=== PATIENT | female | born 1950 | race Caucasian/White ===

== ENCOUNTER 2020-06-24 10:58 | Inpatient (IN) | payer MEDICARE, BC ==
[~2020-06-24] VITALS: Ht 172.7 cm; Wt 65.8 kg
[~2020-06-24 10:58] MED LIST: BABY ASPIRIN81 M1 PO; CHEWABLE CALCI1 EACH PO; FISH OIL ORAL; LISINOPRIL5 MG ORAL; NASONEX17 GM NS; POTASSIUM MAGNESIUM ORAL; PROBIOTIC1 EAC1 PO; SERTRALINE HCL100 MG PO; SERTRALINE HCL50 MG PO; VIT B12 ORAL; VIT D ORAL; ZYRTEC10 M3 PO; ZYRTEC10 MG PO
--- NOTE | 2020-06-24 12:21 | Pre-Procedure Note/Attestation ---
Pre-Procedure Note/Attestation Complete Prior to Procedure Planned Procedure: not applicable Procedure Narrative: Kock Pouch Endoscopy Indications for Procedure Pre-Operative Diagnosis: Malfunctioning Kock Pouch with inability to intubate Attestation I attest that I discussed the nature of the procedure; its benefits; risks and complications; and alternatives (and the risks and benefits of such alternatives), prior to the procedure, with the patient (or the patient's legal associate financial representative). I attest that, if there was a reasonable possibility of needing a blood transfusion, the patient (or the patient's legal associate financial representative) was given the [facility] standardized written summary, pursuant to the [place] Blood Safety Act ([place] Health and Safety Code # 1645, as amended). I attest that I re-evaluated the patient just prior to the surgery and that there has been no change in the patient's H&P, except as documented below: none Dandy Mar MD Jun 24, 2020 12:21
[2020-06-24 12:22] VITALS: BP 127/72
--- NOTE | 2020-06-24 12:30 | Pre-op HX & Phy Repo 2 SIG ---
PRE-ENDOSCOPY HISTORY AND PHYSICAL REASON FOR EVALUATION: Scheduled for urgent Kock pouch endoscopy on June 24, 2020. HISTORY OF PRESENT ILLNESS: The patient is a 69-year-old female in overall good health, who has a past history of ulcerative colitis and many years ago underwent proctocolectomy with Kock pouch continent ileostomy with last revision in 2012. She has been doing well intubating 5 times per day. Recently, she felt she might have some symptoms of pouchitis, but then on nightJune 18 at 11 p.m., she intubated, but she was unable to intubate the following day. I directed her that evening on June 19, to the emergency room and she was in [place]. vice president payer was able to get a 30-Swedish Medena catheter into the pouch and connected it to suction. A nasogastric tube was placed and she was hospitalized for several days, now at home and stable. She has an indwelling catheter in place. Her difficulty has only been for the last few weeks and she has been able to put the catheter almost all the way in before it could not go in any further. In the past she had severe pouchitis causing abdominal and right lower extremity pain, with extensive negative vascular work-up. 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 After several months of instilling mesalamine suspension qhs into her pouch all of her symptoms resolved. PAST MEDICAL HISTORY: MEDICATIONS: Lisinopril 10 mg daily, sertraline 150 mg daily, Nasacort one spray each nostril once daily, Zyrtec 10 mg per day as needed, iron, probiotics, fish oil, and other supplements. ALLERGIES TO MEDICATIONS: Sulfa. She does not tolerate oral Flagyl, but she is not allergic to Flagyl. REVIEW OF SYSTEMS: The patient has past history of hyperthyroidism, stabilized in 2009. OPERATIONS: In addition to her ulcerative colitis and Kock pouch surgery, she underwent mitral valve robotic repair in 2008 and [place]-BSO in 2000. PHYSICAL EXAMINATION: The patient is arriving from out of town. She will be examined upon arrival and dictated separately. IMPRESSION: 1. Malfunctioning Kock pouch with inability to intubate to evacuate stool. 2. Hypertension. 3. Allergies, intermittent 4. Past history of hyperthyroidism. 5. History of ulcerative colitis. 6. STATUS POST MULTIPLE ABDOMINAL OPERATIONS: 6.1. Proctocolectomy and Marion ileostomy in 1975. 6.2. Kock pouch continent ileostomy in 1979. 6.3. Revision of Kock pouch valve in 1979. 6.4. Total abdominal hysterectomy and bilateral salpingo-oophorectomy 2000 6.5. Revision of Kock pouch with creation of new valve and stoma with relocation of the stoma to the left lower quadrant on September 19, 2012. PLAN: The patient will undergo pouch endoscopy, not requiring anesthesia or sedation. Based on the findings the decision will be made whether surgical revision is required and the best way to proceed. She may need to be admitted after the endoscopy and surgery scheduled on urgent basis. Dandy Mar M.D. DR: Siri JOB#: [id number] CC: REYNA
[2020-06-24 13:09] LABS: BASOPHILS % (AUTO) 1.1 % (0.0-2.0); EOSINOPHILS % (AUTO) 2.8 % (0.0-3.0); HEMOGLOBIN 13.4 G/DL (12.0-16.0); LYMPHOCYTES % (AUTO) 14.9 % (20.0-45.0); MEAN CORPUSCULAR VOLUME 88 FL (80-99); NEUTROPHILS % (AUTO) 75.2 % (45.0-75.0); PLATELET COUNT 235 K/UL (150-450); RED BLOOD COUNT 4.68 M/UL (4.20-5.40); RED CELL DISTRIBUTION WIDTH 14.2 % (11.6-14.8); WHITE BLOOD COUNT 6.1 K/UL (4.8-10.8)
[2020-06-24 13:29] LABS: ANION GAP 11 mmol/L (5-15); BLOOD UREA NITROGEN 17 mg/dL (7-18); CALCIUM 8.6 MG/DL (8.5-10.1); CARBON DIOXIDE 21 MMOL/L (21-32); CHLORIDE 103 MMOL/L (98-107); CREATININE 0.7 MG/DL (0.55-1.30); POTASSIUM 3.3 MMOL/L (3.5-5.1); SODIUM 135 MMOL/L (136-145)
[2020-06-24 13:34] LABS: ALANINE AMINOTRANSFERASE 31 U/L (12-78); ALBUMIN 3.3 G/DL (3.4-5.0); ALBUMIN/GLOBULIN RATIO 0.8 (1.0-2.7); ALKALINE PHOSPHATASE 45 U/L (46-116); ASPARTATE AMINO TRANSFERASE 21 U/L (15-37); BILIRUBIN,TOTAL 0.5 MG/DL (0.2-1.0)
--- NOTE | 2020-06-24 13:51 | Brief Operative Note ---
Immediate Post Operative Note Operative Note Pre-op Diagnosis: Malfunctioning Kock Pouch with inability to intubate Procedure: Kock pouch endoscopy Post-op Diagnosis: Angulation of access segment at 8cm depth Post-op Diagnosis: same as pre-op Findings: consistent w/pre-op dx studies Surgeon: taylor Anesthesia: other - none Specimen: none Complications: none Condition: stable Fluids: none Estimated Blood Loss: none Drains: other - 28 Garrett to Kock Pouch Implant(s) used?: No Dandy Mar MD Jun 24, 2020 13:51
--- NOTE | 2020-06-24 14:00 | NUR ---
NURSE NOTES: Received pt from outpatient. Pt undergone pouch endoscopy. Pt awake, alert and orientedx4, able to make needs known. Pt ambulatory with steady gait. Skin intact. Pt in RA, breathing even and unlabored. Denied any pain at this time. noted ileo connected to drainage bag to gravity. Will flush Q3 as ordered. UA stat order, will collect urine sample. Planned to have PICC placement. Obtained consent by pt. Oriented pt to room. Call light and needs within reach. Bed in low position and locked. Side rails up x2. Will continue to monitor.
--- NOTE | 2020-06-24 14:09 | General Progress Note ---
Progress Note Progress Note H&P dictated. Kock pouch endoscopy reveals an angulation of the access segment at about 8cm deep to the stoma orifice. The pouch and valve are normal and she does not have incontinence. 28 Fr Garrett inserted post-endoscopy and connected to continuous drainage bag. History of tumor outside the pouch from prior CT scan not currently available K 3.3 Albumin 3.3 Imp: Malfunctioning Kock pouch with inability to intubate R/O intra-abdominal tumor outside Kock pouch based on history Plan; Admit from GI lab with indwelling Kock pouch catheter to continuous drainage PICC line placement CT abd and pelvis with oral and IV contrast in AM Will need surgical revision - possibly stoma revision in depth, vs. laparotomy to correct the angulation. Will wait for CT scan prior to surgical decision Clear liquid diet, NPO after midnight Dandy Mar MD Jun 24, 2020 14:09
--- NOTE | 2020-06-24 14:45 | History and Physical Report ---
DATE OF ADMISSION: 06/24/2020 DATE OF EXAMINATION: June 24, 2020 Please see previously dictated history. The patient has now arrived from out of town to undergo emergent endoscopy of her Kock pouch continent ileostomy because of difficulty with intubation. PHYSICAL EXAMINATION: GENERAL: The patient is well developed and well nourished. VITAL SIGNS: Within normal limits. HEENT: Within normal limits. LUNGS: Clear. HEART: Regular rhythm. BREASTS: Without masses. ABDOMEN: Soft. There is a long midline scar. There is a long transverse right upper quadrant scar. There are additional lower abdominal scars on the right side from prior stoma. Kock pouch continent ileostomy stoma is low in the left lower quadrant and well-formed. There is no evidence of incisional or parastomal hernia. PELVIC: Status post hysterectomy. RECTAL: Status post proctectomy. EXTREMITIES: Without edema. NEUROLOGIC: Physiologic. IMPRESSION: 1. Malfunctioning Kock pouch with inability to intubate to evacuate stool 2. Hypertension. 3. Past history of hyperthyroidism. 4. History of ulcerative colitis. 5. STATUS POST MULTIPLE ABDOMINAL OPERATIONS: 5.1. Proctocolectomy and Marion ileostomy in 1975. 5.2. Kock pouch continent ileostomy in 1979. 5.3. Revision of Kock pouch valve 1979. 5.4. Total abdominal hysterectomy and bilateral salpingo-oophorectomy 2000. 5.5. Revision of Kock pouch with creation of new valve and stoma with relocation of the stoma to the left lower quadrant September 2012. 5.6 Revision of stoma in depth June 12, 2013 6. Robotic mitral valve repair 2008 PLAN: The patient will undergo pouch endoscopy without requiring anesthesia or sedation. Based on the findings, decisions will be made as to whether she will require surgical revision or medical treatment of her inability to intubate. Dandy Mar M.D. DR: Siri JOB#: [id number] CC: REYNA
--- NOTE | 2020-06-24 15:00 | Procedure Note ---
DATE OF PROCEDURE: 06/24/2020 ENDOSCOPY PROCEDURE REPORT ENDOSCOPIST: Dandy Mar MD. ANESTHESIA: None. SEDATION: None. PRE-ENDOSCOPY DIAGNOSES: 1. Malfunctioning Kock pouch with recent inability to intubate to evacuate stool. 2. History of ulcerative colitis. 3. Status post multiple abdominal operations including proctocolectomy and Marion ileostomy in 1975, Kock pouch in 1979 with revision in 1979, hysterectomy 2000, and revision of Kock pouch with new valve and relocation of stoma to the left lower quadrant September 2012. POST-ENDOSCOPY DIAGNOSES: 1. Malfunctioning Kock pouch with recent inability to intubate to evacuate stool. 2. History of ulcerative colitis. 3. Status post multiple abdominal operations including proctocolectomy and Marion ileostomy in 1975, Kock pouch in 1979 with revision in 1979, hysterectomy 2000, and revision of Kock pouch with new valve and relocation of stoma to the left lower quadrant September 2012. ENDOSCOPY PERFORMED: Kock pouch endoscopy. FINDINGS: Elongation redundancy and angulation of the access segment at approximately 8 cm depth. DESCRIPTION OF PROCEDURE: The patient was positioned supine in the GI lab without any anesthesia or sedation given or required. She presented with an indwelling 30-Kittitian Medena catheter to a leg bag. This was flushed to clear the pouch and then removed. Using GIF-P140, the stoma was entered. There was an angulation of the access segment at the 7 to 8 cm deep to the stomal orifice. The distance to the tip of the valve was approximately 10 cm, slightly redundant for this patient. The pouch was entered and was distensible. The mucosa was normal. There was no evidence of pouchitis. Retroflexed views revealed a circumferentially well-formed nipple valve. The patient has not been having any incontinence. Withdrawal views confirmed the above findings. After removing the endoscope, I was able to manipulate a 28-Kittitian Garrett catheter into the pouch and connected to gravity drainage bag, secured with tape with a dressing over the stoma. The patient will be admitted and will require surgical revision. She tolerated the endoscopy well. Dandy Mar M.D. DR: Siri JOB#: [id number] CC:
--- NOTE | 2020-06-24 15:16 | Pre-Procedure Note/Attestation ---
Pre-Procedure Note/Attestation Complete Prior to Procedure Planned Procedure: not applicable Procedure Narrative: Fluoro guided PICC insertion Indications for Procedure Pre-Operative Diagnosis: Needs watcher automat long goods IV access Attestation I attest that I discussed the nature of the procedure; its benefits; risks and complications; and alternatives (and the risks and benefits of such alternatives ), prior to the procedure, with the patient (or the patient's legal public utilities sales representative). I attest that, if there was a reasonable possibility of needing a blood transfusion, the patient (or the patient's legal public utilities sales representative) was given the [facility] standardized written summary, pursuant to the [place] Blood Safety Act ([place] Health and Safety Code # 1645, as amended). I attest that I re-evaluated the patient just prior to the surgery and that there has been no change in the patient's H&P, except as documented below: Km Melgoza MD Jun 24, 2020 15:16
--- NOTE | 2020-06-24 15:18 | Brief Operative Note ---
Immediate Post Operative Note Operative Note Chief Complaint: Constipation Pre-op Diagnosis: Needs detention IV access Procedure: Fluoro guided PICC placement Post-op Diagnosis: Constipation requring surgery Post-op Diagnosis: same as pre-op Findings: consistent w/pre-op dx studies Surgeon: Km Melgoza MD, MA Anesthesia: local Specimen: none Complications: none Fluids: 0 Estimated Blood Loss: minimal Implant(s) used?: Yes - 4 Fr Double Lumen PICC @ 43cm Km Melgoza MD Jun 24, 2020 15:18
[2020-06-24] MEDS ORDERED: Heparin1,000 units/500ml Premix(Conc:2 units/ml) IV PRN (15:48)
[2020-06-24] MEDS ORDERED: Lidocaine 1% Plain 30 ml INJ PRN (15:48)
--- NOTE | 2020-06-24 16:00 | NUR ---
NURSE NOTES: Pt came back from Radiology with PICC line on right upper arm. Dressing clean and dry. No redness, swelling, tenderness. Received order for ok to use PICC line. Both lumens flushed well and good blood return.
--- NOTE | 2020-06-24 16:37 | NUR ---
RADIOLOGY NOTE:. RIGHT UPPER EXTREMITY PICC LINE PLACEMENT BY DR. MARIA AT 1508 HRS. FA
[2020-06-24 16:42] LABS: APPEARANCE,URINE CLEAR; BILIRUBIN, URINE NEGATIVE (NEGATIVE); COLOR,URINE PALE YELLOW; GLUCOSE, URINE (UA) NEGATIVE (NEGATIVE); KETONES,URINE 1+ (NEGATIVE); LEUKOCYTE ESTERASE ,URINE NEGATIVE (NEGATIVE); NITRITE,URINE NEGATIVE (NEGATIVE); PH,URINE 5 (4.5-8.0); PROTEIN,URINE NEGATIVE (NEGATIVE); UROBILINOGEN,URINE NORMAL MG/DL (0.0-1.0)
--- NOTE | 2020-06-24 17:46 | Diagnostic Imaging Report ---
Indications: Needs long-term IV access Technique: Ultrasound confirms patent compressible basilic vein. Total sterile technique, including sterile probe cover and sterile gel, hat, mask,, sterile gown, large sterile drape, and preparation with 2% chlorhexidine utilized. Local anesthesia with 1% lidocaine. Under real-time ultrasound guidance, the basilic vein was punctured using 21-gauge needle, followed by passage of 0.018 guidewire under direct fluoroscopy, which was used to determine appropriate catheter length. Subsequently, the needle was exchanged for 5 Tamazight peel-away sheath. 4 Tamazight dual-lumen power PICC cut to 43 cm. It was inserted through the peel-away sheath. Peel-away sheath and guidewire removed. Catheter fixed to the skin. Both catheter ports aspirated and flushed. Patient tolerated procedure well, without immediate complication. Digital radiograph documents satisfactory catheter tip position, at the cavoatrial junction. Total fluoroscopy time 30.2 seconds Total dose area product 0.50614 mGycm2 Impression: Successful placement of right-sided dual lumen PICC under sonographic and fluoroscopic guidance, as described above.
[2020-06-24] MEDS: D5 1/2NS w/KCl 20mEq 1,000 ML IV SCH (18:14)
--- NOTE | 2020-06-24 19:45 | NUR ---
NURSE NOTES: Received report from Maryann BERGMAN. Patient is awake, alert, and oriented x4. Breathing is even and unlabored in room air. Patient denies pain at the moment. Patient is ambulatory. Ileo connected to bag by gravity. Will flush q3h per order. Dressing intact and clean. PICC line right upper arm dressing intact with no bleeding noted. IVF running as ordered. Bed low and locked. Call light within reach.
[2020-06-24 20:00] VITALS: BP 122/72
--- NOTE | 2020-06-24 20:01 | NUR ---
NURSE HAND-OFF: Important Events on Shift:[Pouch endoscopy done, PICC placement done, Resumed home meds, Ileostomy with tavera cath connected to drainage bag. Belongings checked, NPO after midnight] Patient Status: [stable] Diet: [Clear liquid] Pending Orders: [] Pending Results/Labs:[] Pending MD notification:[] Latest Vital Signs: Temperature 97.2 , Pulse 74 , B/P 127 /72 , Respiratory Rate 18 , O2 SAT 96 , Room Air, O2 Flow Rate . Vital Sign Comment: [stable] Latest Coelho Fall Score: 35 Fall Risk: Medium Risk Safety Measures: Call light Within Reach, Bed Alarm Zone 1, Side Rails Side Rails x2, Bed position Low and Locked. Fall Precautions: Report given to [PACHECO Abraahm and PACHECO Jackson].
[2020-06-24] MEDS: Dyna-Hex 2% Top Sol 2oz TOPIC SCH (20:50)
[2020-06-25] VITALS (7 sets, daily range): BP systolic 114–130; BP diastolic 69–89
[2020-06-25 05:43] LABS: BASOPHILS % (AUTO) 1.3 % (0.0-2.0); EOSINOPHILS % (AUTO) 5.2 % (0.0-3.0); HEMATOCRIT 36.5 % (37.0-47.0); HEMOGLOBIN 12.5 G/DL (12.0-16.0); MEAN CORPUSCULAR VOLUME 84 FL (80-99); MONOCYTES % (AUTO) 6.7 % (1.0-10.0); NEUTROPHILS % (AUTO) 70.9 % (45.0-75.0); PLATELET COUNT 227 K/UL (150-450); RED BLOOD COUNT 4.32 M/UL (4.20-5.40); RED CELL DISTRIBUTION WIDTH 14.6 % (11.6-14.8); WHITE BLOOD COUNT 5.6 K/UL (4.8-10.8)
--- NOTE | 2020-06-25 06:42 | NUR ---
NURSE NOTES: Urine output - 1,300 ml Ileo output - 445 ml
--- NOTE | 2020-06-25 06:43 | NUR ---
NURSE HAND-OFF: Important Events on Shift: IVF, NPO after midnight Patient Status: Stable Diet: Clear liquid, NPO after midnight Pending Orders: N/A Pending Results/Labs:N/A Pending MD notification:N/A Latest Vital Signs: Temperature 98.1 , Pulse 72 , B/P 120 /82 , Respiratory Rate 16 , O2 SAT 95 , Room Air, O2 Flow Rate . Vital Sign Comment: VS stable Latest Coelho Fall Score: 35 Fall Risk: Medium Risk Safety Measures: Call light Within Reach, Bed Alarm Zone 1, Side Rails Side Rails x2, Bed position Low and Locked. Fall Precautions: Patient Fall Education Report will be given to Radha BERGMAN. Addendum: 06/25/20 at 0733 by Dakota Erickson RN Report given to Rosalba BERGMAN.
[2020-06-25] MEDS: D5 1/2NS w/KCl 20mEq 1,000 ML IV SCH (06:59)
[2020-06-25 07:10] LABS: ALANINE AMINOTRANSFERASE 30 U/L (12-78); ALBUMIN 2.9 G/DL (3.4-5.0); ALBUMIN/GLOBULIN RATIO 0.9 (1.0-2.7); ALKALINE PHOSPHATASE 44 U/L (46-116); ANION GAP 9 mmol/L (5-15); ASPARTATE AMINO TRANSFERASE 19 U/L (15-37); BILIRUBIN,TOTAL 0.5 MG/DL (0.2-1.0); BLOOD UREA NITROGEN 9 mg/dL (7-18); CARBON DIOXIDE 23 MMOL/L (21-32); CHLORIDE 106 MMOL/L (98-107); CREATININE 0.5 MG/DL (0.55-1.30); POTASSIUM 3.4 MMOL/L (3.5-5.1); SODIUM 138 MMOL/L (136-145)
--- NOTE | 2020-06-25 08:00 | NUR ---
NURSE NOTES: SEEN BY MD. ALERT AND ORIENTED NO C/C OF PAIN @ THIS TIME.DRESSING DONE BY . NPO FOR CT THIS MORNING.WILL CONTINUE W/ PLAN OF CARE.
[2020-06-25] MEDS ORDERED: Omnipaque-300 100ml vial INJ PRN (08:15)
--- NOTE | 2020-06-25 08:28 | General Progress Note ---
Progress Note Progress Note AVSS Feels okay with Kock pouch to continuous drainage. PICC in placee Abdomen soft overnight 12 hours: urine 1300 Kock pouch ileo 445 K 3.4 (up) BUN down 9 Cr 0.5 Mg 1.7 albumin 2.9 Imp: Malnutrition on admission Mild dehydration on admission, resolved Malfunctioning Kock Pouch with history of "tumor" on pouch on prior scans Plan: CT abd+pelvis with po+IV contrast TPN Mg infusions continuous drainage of Kock pouoch Dandy Mar MD Jun 25, 2020 08:28
[2020-06-25] MEDS: Lisinopril 2.5mg tab ORAL SCH (09:10)
[2020-06-25] MEDS: Sertraline 50mg tab ORAL SCH (09:11)
[2020-06-25] MEDS: Flonase Nasal Inhaler 16gm NASAL SCH (09:11)
--- NOTE | 2020-06-25 09:22 | NUR ---
RD ASSESSMENT & RECOMMENDATIONS SEE CARE ACTIVITY FOR COMPLETE ASSESSMENT DAILY ESTIMATED NEEDS: Needs based on General, possible surgery/ 66kg 25-30 kcals/kg 8193-6976 total kcals 1-1.5 g protein/kg 66-99 g total protein 25-30 mL/kg 2755-6131 total fluid mLs NUTRITION DIAGNOSIS: Altered GI function R/T h/o UC, admitted w/ malfunctioning Kock pouch with inability to intubate to evacuate stool as evidenced by NPO, pt to start TPN. CURRENT DIET:NPO PO DIET RECOMMENDATIONS: DIET PER PARENTERAL NUTRITION RECOMMENDATIONS: D/AA Rate: 66 IL Rate: 9 Total Rate: 75 Volume: 1800 % Dextrose: 18 % AA: 5.4 Energy (kcals/kg): 1743 Protein (g/kg protein): 86 Nonprotein KCALS: 1401 GIR (mg CHO/kg/min): 3.0 % Fat KCALS: 25 NCP: N Ratio: 102:1 TPN Comment: *D18% AA 5.4% @ 66ml/hr + IL 20% @ 9ml/hr-> all 3:1, total of 75ml/hr x 24hrs *TPN @ goal provides 100% est kcal/prot needs ADDITIONAL RECOMMENDATIONS: * Monitor lytes closely w/ TPN, replete as needed (low K and mag) * Monitor LFTs and BGs w/ TPN, need for TPN adjustment * Monitor wt trend, rec standing wt for accuracy.
--- NOTE | 2020-06-25 10:30 | NUR ---
NURSE NOTES: TO RADIOLOGY FOR CT VIA WHEELCHAIR.
--- NOTE | 2020-06-25 11:51 | NUR ---
CASE MANAGEMENT:INITIAL REVIEW 69 YR OLD FEMALE FROM HOME FOR SCHEDULED PROCEDURE CC;KOCK POUCH MALFUNCTION W/INABILITY TO INTUBATE SI;POD #1 KOCK POUCH ENDOSCOPY 97.6 72 18 130/75 93% ON RA NA 135 K+ 3.3 UA+ KETONES, BLOOD, RBC, SQUAMOUS EPITH CELLS, AMORPHOUS SEDIMENT COVID RAPID ~ NEGATIVE PICC LINE INSERTION IS;HEPARIN IV ONCE IVF D5W ADMITTED TO MED SURG MED SURG STATUS DCP;FROM HOME PLAN; TPN MG INFUSIONS CONTINUOUS DRAINAGE OF KOCK POUCH
--- NOTE | 2020-06-25 13:08 | Diagnostic Imaging Report ---
CT ABDOMEN AND PELVIS WITH CONTRAST INDICATION: Abdominal mass TECHNIQUE: Continuous helical transaxial imaging of the abdomen and pelvis was obtained from the lung bases to the pubic symphysis during intravenous contrast administration. Coronal 2-D reformats were also obtained. Study obtained in a Siemens sensation [address] Automatic Exposure Control was utilized. Total Dose length Product (DLP): 280.[address] Dose Index Volume (CTDIvol): 5.6 mGy COMPARISON: None FINDINGS: Lower chest:: Mild cardiomegaly. There is bibasilar subsegmental atelectasis. Hepatobiliary:: Unremarkable. Genitourinary:: There's a nonobstructing left lower pole renal calculus measuring 1.1 cm. No hydronephrosis. Subcentimeter renal cysts. Adrenals:: Nonspecific left adrenal gland thickening. Pancreas:: Unremarkable. Gastrointestinal:: The patient is status post colectomy with Kock pouch creation, which is cannulated by a left lower quadrant approach catheter. There is high-density material and soft tissue thickening around the entry site of the catheter at the anterior aspect of the pouch, likely representing expected postoperative appearance. Blind ending rectal stump is noted. Spleen: : Unremarkable. Peritoneum:: No free air or free fluid. Bones and soft tissues:: There are multilevel discogenic degenerative changes of the visualized spine. IMPRESSION: 1. Status post Kock pouch creation, which is cannulated and does not demonstrate filling defects. 2. Nonobstructing left nephrolithiasis. The CT scanner at [facility] is accredited by the [employer] and the scans are performed using protocols designed to limit radiation exposure to as low as reasonably achievable to attain images of sufficient resolution adequate for diagnostic evaluation.
--- NOTE | 2020-06-25 14:00 | NUR ---
NURSE NOTES: Received report from PACHECO Rowe. Pt lying in bed w/bed in lowest position and call light within reach. Pt A&Ox4, VSS, and in no apparent distress. DESI PICC line intact/asymptomatic w/IVF infusing; ileo patent/draining; and dressing C/D/I. Pt still NPO after CT scan this morning; will f/u w/MD. Will continue to monitor.
--- NOTE | 2020-06-25 19:34 | NUR ---
NURSE HAND-OFF: Important Events on Shift: PT had CT A/P today; NPO at midnight in preparation for EGD tomorrow morning. Patient Status: Stable Diet: Clear liquids Pending Orders: None Pending Results/Labs: None Pending MD notification: None Latest Vital Signs: Temperature 97.4 , Pulse 76 , B/P 123 /74 , Respiratory Rate 18 , O2 SAT 95 , Room Air, O2 Flow Rate . Vital Sign Comment: Stable Latest Coelho Fall Score: 35 Fall Risk: Medium Risk Safety Measures: Call light Within Reach, Bed Alarm Zone 1, Side Rails Side Rails x2, Bed position Low and Locked. Fall Precautions: Patient Fall Education Report given to PACHECO Abraham.
--- NOTE | 2020-06-25 19:45 | NUR ---
NURSE NOTES: Received report from Bree BERGMAN. Patient is awake, alert, and oriented x4. On room air, breathing is even and unlabored. No c/o pain. RLQ ileo with catheter and drainage bag by gravity noted. Dressing changed per patient request. IV PICC line on DESI intact and patent with no bleeding noted. Bed low and locked. Call light within reach.
[2020-06-25] MEDS ORDERED: Dextrose 10% 1,000 ML IV PRN (20:00)
[2020-06-25] MEDS: Fat Emulsion Iv 20% 216 ML in Tpn 1,584 ML IV SCH (20:08)
[2020-06-25] MEDS: Dyna-Hex 2% Top Sol 2oz TOPIC SCH (20:08)
[2020-06-25] MEDS: Phytonadione 10 mg/mL 1ml amp SUBQ SCH (20:09)
[2020-06-25] MEDS ORDERED: Fat Emulsion Iv 20% 250 ML IV SCH (21:00)
[2020-06-25] MEDS ORDERED: Tpn 2,000 ML IV SCH (21:00)
[2020-06-25] MEDS: NovoLOG Insulin Flexpen SUBQ SCH (23:47)
[2020-06-26 03:55] VITALS: BP 113/77
[2020-06-26] MEDS: NovoLOG Insulin Flexpen SUBQ SCH ×3 (05:37→17:50)
[2020-06-26 06:10] LABS: BASOPHILS % (AUTO) 1.3 % (0.0-2.0); EOSINOPHILS % (AUTO) 4.9 % (0.0-3.0); HEMATOCRIT 36.7 % (37.0-47.0); MEAN CORPUSCULAR VOLUME 83 FL (80-99); MONOCYTES % (AUTO) 7.2 % (1.0-10.0); NEUTROPHILS % (AUTO) 69.6 % (45.0-75.0); PLATELET COUNT 214 K/UL (150-450); RED CELL DISTRIBUTION WIDTH 14.7 % (11.6-14.8); WHITE BLOOD COUNT 5.5 K/UL (4.8-10.8)
[2020-06-26 06:43] LABS: ALANINE AMINOTRANSFERASE 27 U/L (12-78); ALBUMIN 2.8 G/DL (3.4-5.0); ALBUMIN/GLOBULIN RATIO 0.8 (1.0-2.7); ALKALINE PHOSPHATASE 40 U/L (46-116); ANION GAP 6 mmol/L (5-15); ASPARTATE AMINO TRANSFERASE 20 U/L (15-37); BILIRUBIN,TOTAL 0.2 MG/DL (0.2-1.0); BLOOD UREA NITROGEN 9 mg/dL (7-18); CARBON DIOXIDE 24 MMOL/L (21-32); CHLORIDE 106 MMOL/L (98-107); CREATININE 0.6 MG/DL (0.55-1.30); PHOSPHORUS 2.9 MG/DL (2.5-4.9); POTASSIUM 3.8 MMOL/L (3.5-5.1); SODIUM 136 MMOL/L (136-145)
--- NOTE | 2020-06-26 06:57 | NUR ---
NURSE NOTES: Urine output - 1,375ml Ileo output - 320ml
--- NOTE | 2020-06-26 06:58 | NUR ---
NURSE HAND-OFF: Important Events on Shift: TPN, dressing change Patient Status: Stable Diet: Clear liquid and NPO after midnight Pending Orders: N/A Pending Results/Labs:N/A Pending MD notification:N/A Latest Vital Signs: Temperature 97.2 , Pulse 72 , B/P 113 /77 , Respiratory Rate 18 , O2 SAT 95 , Room Air, O2 Flow Rate . Vital Sign Comment: VS stable Latest Coelho Fall Score: 35 Fall Risk: Medium Risk Safety Measures: Call light Within Reach, Bed Alarm Zone 1, Side Rails Side Rails x2, Bed position Low and Locked. Fall Precautions: Patient Fall Education Report will be given to Radha BERGMAN.
--- NOTE | 2020-06-26 07:13 | NUR ---
NURSE NOTES: Report received from Dakota RN/Leigh RN, rounds made. Patient AOx4, calm. Respirations even/unlabored on RA. DESI PICC, bruised surrounding skin, dressing CDI. TPN infusin at 75 ml/hr. LLQ Ileostomy, dressing CDI, draining green liquid to drainage bag. Denies SOB, pain, NV. Remains NPO. Call light in reach, bed in lowest position, will continue to monitor.
[2020-06-26 08:00] VITALS: BP 130/78
--- NOTE | 2020-06-26 08:32 | General Progress Note ---
Progress Note Progress Note AVSS. Now on TPN for serum albumin now 2.8 (low albumin present on admission) Feels fine with clear liquids and Kock pouch catheter to continuous drainage. labs all stable/satisfactory except albumin 2.8 Urine 2074 Kock pouch ileo 1490 (with contrast po from CT) CT revealed no specific evidence of mass - will review with Radiologist today after Pouchogram XRay Imp: Malnutrition pre-op for revision of Kock Pouch Plan: Kock pouch pouchogram XRay with retrograde SBS today TPN Surgery pending 06/29 Dandy aMr MD Jun 26, 2020 08:32
[2020-06-26] MEDS: Sertraline 50mg tab ORAL SCH (09:46)
[2020-06-26] MEDS: Lisinopril 2.5mg tab ORAL SCH (09:46)
[2020-06-26] MEDS: Flonase Nasal Inhaler 16gm NASAL SCH (09:47)
[2020-06-26] MEDS ORDERED: Potassium Phosphate 15mm/250ml 250 ML IVPB SCH (10:00)
--- NOTE | 2020-06-26 11:39 | NUR ---
CASE MANAGEMENT:REVIEW SI;POD #2 KOCK POUCH ENDOSCOPY 98.6 77 18 130/78 95% ON RA IS;TPN IV ZESTRIL PO QD K+ PHOSPHATE MED SURG STATUS DCP;FROM HOME PLAN; Kock pouch pouchogram XRay with retrograde SBS today TPN Surgery pending 06/29
[2020-06-26 12:00] VITALS: BP 115/78
--- NOTE | 2020-06-26 12:38 | Consultation ---
Consult Note Consult Note Cardiology Consult: Chart reviewed, patient examined, EKG, Echo and labs reviewed. Imp 1. U.C with Kock pouch 2. h/o MVP- s/p repai in 2009 3. Mild MR 4. Depression 5. Abnormal EKG- w.o. evidence of LV dysfunction on Echo Plan May proceed with surgery No need for ABX Px Will discuss with Dr. Mar Note dictated # [id number] Zion Quiroga MD Jun 26, 2020 12:38
--- NOTE | 2020-06-26 12:43 | NUR ---
NURSE NOTES: Seen and evaluated by and Cleared to have procedure cardiology standpoint. Order noted and carried out.
[2020-06-26] MEDS ORDERED: Ascorbic Acid 500mg tab ORAL PRN (13:46)
--- NOTE | 2020-06-26 13:50 | NUR ---
NURSE NOTES: Patient sent down for Pouchogram XR, via WC at 1300, returned at 1350 in stable condition. Will order BCIR diet as ordered per Dr. Mar.
--- NOTE | 2020-06-26 15:15 | Consultation ---
DATE OF CONSULTATION: 06/26/2020 CARDIOLOGY CONSULTATION CONSULTING PHYSICIAN: Zion Quiroga MD. ATTENDING PHYSICIAN: Dandy Mar MD. REFERRING PHYSICIAN: Dandy Mar MD. REASON FOR CONSULTATION: Preoperative cardiac clearance. HISTORY OF PRESENT ILLNESS: The patient is a 69-year-old white female with history of ulcerative colitis, who has had multiple surgeries and currently has a Kock pouch, which will need revision. The patient has been admitted for further workup and revision of the Kock pouch. The patient has history of mitral valve prolapse and according to the patient in 2009, she underwent a robotic procedure for mitral valve repair and has been doing well since that time, but has minimal mitral regurgitation for which she is on JUAN DANIEL inhibitors. The patient has been followed at [facility] and also by her block layer in [place] and has remained stable. Her preoperative EKG showed normal sinus rhythm with poor R-wave progression in the anterior leads consistent with possible anteroseptal TX. The patient denies history of coronary artery disease, chest pain, or shortness of breath and has been active. She exercises regularly and does yoga as well as Micah without any limitations. PAST MEDICAL HISTORY: 1. Mitral valve prolapse, status post robotic repair. 2. Depression. 3. Allergic rhinitis. 4. History of ulcerative colitis, status post Kock pouch surgery currently with pouchitis. MEDICATIONS: The patient has been on lisinopril 10 mg daily, sertraline 150 mg daily, Zyrtec 10 mg daily, iron, probiotic, fish oil, and supplements. ALLERGIES: To sulfa. REVIEW OF SYSTEMS: Essentially as noted above. PHYSICAL EXAMINATION: VITAL SIGNS: Blood pressure is 110/70, temperature afebrile, heart rate is 70. GENERAL: The patient is alert and oriented, pleasant female, in no apparent distress. HEENT: Unremarkable. NECK: Supple. LUNGS: Without rales or wheezes. CARDIAC: S1, S2 are normal. There is a 1/6 systolic murmur heard on the left sternal border. Jugular venous pressure appears to be normal. ABDOMEN: Soft, nontender. Bowel sounds are present. EXTREMITIES: Without cyanosis, clubbing, or edema. DIAGNOSTIC STUDIES: EKG shows normal sinus rhythm at a rate of 74 beats per minute with possible left atrial enlargement and poor R-wave progression from V1 through V3. Echocardiogram was performed and reviewed, shows normal LV systolic function with ejection fraction of 65%. The mitral valve appears to move well. There is mitral annular calcification and aortic root calcification noted. Mild mitral regurgitation is noted. Tricuspid velocities reveal a right ventricular systolic pressure of 20 mmHg. Pulmonic regurgitation is noted. LABORATORY DATA: WBC is 5.5, hemoglobin 13.0, hematocrit 36.7, platelet count 214,000. Sodium is 136, potassium 3.8, chloride 106, creatinine is 0.6, glucose is 122. Liver function tests shows alkaline phosphatase of 40 with AST of 20 and ALT of 27, albumin is 2.8. PT and PTT are within normal limits. IMPRESSION: 1. Ulcerative colitis with Kock pouch malfunction. 2. History of mitral valve prolapse, status post robotic repair in 2009, currently stable with mild mitral regurgitation on echocardiogram. 3. Depression. 4. Allergic rhinitis. 5. Hypoalbuminemia, currently on TPN. 6. Abnormal EKG, most likely due to lead placement or axis change without evidence of LV dysfunction and without any evidence of ischemia. PLAN AND SUGGESTION: The patient is stable to proceed with surgery as planned and has no contraindications. She may continue on her current medications and has an acceptable risk for planned surgery. Dr. Mar, thank you for allowing me to participate in the care of this patient, and I will be happy to follow with you as necessary. Zion Quiroga M.D. DR: CELESTE JOB#: [id number] CC:
--- NOTE | 2020-06-26 15:31 | Diagnostic Imaging Report ---
Indication: Chest pain. Preop. Technique: Portable frontal view of the chest. Comparison: 09/18/2012 Findings: Heart is enlarged but stable in size. Again there is surgical material in the region of the mitral valve annulus. Mediastinal contours are sharp. PICC line at this tip in satisfactory position at the cavoatrial junction. There is no focal airspace consolidation. No pleural effusion, pneumothorax or radiographic evidence of pulmonary edema. Mild scoliosis and degenerative changes of the spine again seen. Acute osseous body. Impression: No radiographic evidence of acute cardiopulmonary disease.
--- NOTE | 2020-06-26 15:51 | Anethesia Preoperative Eval ---
Anesthesia Pre-op PMH/ROS General Date of Evaluation: Jun 26, 2020 Time of Evaluation: 15:21 Anesthesiologist: Melissa ASA Score: ASA 3 Mallampati Score Class I : Soft palate, uvula, fauces, pillars visible Class II: Soft palate, uvula, fauces visible Class III: Soft palate, base of uvula visible Class IV: Only hard plate visible Mallampati Classification: Class II Surgeon: Isabela Diagnosis: Abd Pain Surgical Procedure: Revision of Fox Pouch Anesthesia History: none Family History: no anesthesia problems Allergies: Coded Allergies: METRONIDAZOLE (Verified Adverse Reaction, STOMACH UPSET, 09/18/12) SULFA (SULFONAMIDE ANTIBIOTICS) (Verified Adverse Reaction, HEADACHE, 09/18/12) Medications: see eMAR Patient NPO?: Yes Past Medical History Cardiovascular: Reports: valve dz - Mitral Valve Repair Gastrointestinal/Genitourinary: Reports: other - Cirrohsis, Colitis Neurologic/Psychiatric: Reports: depression/anxiety Endocrine: Reports: hypothyroidism Hematology/Immune: Reports: anemia Musculoskeletal/Integumentary: Reports: edema PSxH Narrative: 1. Malfunctioning Kock pouch with inability to intubate to evacuate stool. 2. Hypertension. 3. Past history of hyperthyroidism. 4. History of ulcerative colitis. 5. STATUS POST MULTIPLE ABDOMINAL OPERATIONS: 5.1. Proctocolectomy and Marion ileostomy in 1975. 5.2. Kock pouch continent ileostomy in 1979. 5.3. Revision of Kock pouch valve 1979. 5.4. Total abdominal hysterectomy and bilateral salpingo-oophorectomy 2000. 5.5. Revision of Kock pouch with creation of new valve and stoma with relocation of the stoma to the left lower quadrant September 2012. 6. Robotic mitral valve repair 2008 Anesthesia Pre-op Phys. Exam Physician Exam Last Vital Signs Date Time Temp Pulse Resp B/P (MAP) Pulse Ox O2 Delivery O2 Flow Rate FiO2 06/26/20 12:00 97.6 73 16 115/78 (90) 95 06/26/20 09:00 Room Air Constitutional: NAD Neurologic: CN 2-12 intact Cardiovascular: RRR Respiratory: CTA Gastrointestinal: S/NT/ND Airway Exam Mallampati Score: Class II MO: full ROM: limited Teeth: missing, intact Anesthesia Pre-op A/P Labs Hematology Test 06/26/20 05:05 White Blood Count 5.5 K/UL (4.8-10.8) Red Blood Count 4.40 M/UL (4.20-5.40) Hemoglobin 13.0 G/DL (12.0-16.0) Hematocrit 36.7 % (37.0-47.0) L Mean Corpuscular Volume 83 FL (80-99) Mean Corpuscular Hemoglobin 29.5 PG (27.0-31.0) Mean Corpuscular Hemoglobin Concent 35.4 G/DL (32.0-36.0) Red Cell Distribution Width 14.7 % (11.6-14.8) Platelet Count 214 K/UL (150-450) Mean Platelet Volume 7.8 FL (6.5-10.1) Neutrophils (%) (Auto) 69.6 % (45.0-75.0) Lymphocytes (%) (Auto) 17.0 % (20.0-45.0) L Monocytes (%) (Auto) 7.2 % (1.0-10.0) Eosinophils (%) (Auto) 4.9 % (0.0-3.0) H Basophils (%) (Auto) 1.3 % (0.0-2.0) Chemistry Test 06/25/20 23:45 06/26/20 05:05 06/26/20 05:16 06/26/20 11:57 POC Whole Blood Glucose 132 MG/DL (74-106) H 125 MG/DL (74-106) H 120 MG/DL (74-106) H Sodium Level 136 MMOL/L (136-145) Potassium Level 3.8 MMOL/L (3.5-5.1) Chloride Level 106 MMOL/L (98-107) Carbon Dioxide Level 24 MMOL/L (21-32) Anion Gap 6 mmol/L (5-15) Blood Urea Nitrogen 9 mg/dL (7-18) Creatinine 0.6 MG/DL (0.55-1.30) Estimat Glomerular Filtration Rate > 60 mL/min (>60) Glucose Level 122 MG/DL (74-106) H Calcium Level 8.0 MG/DL (8.5-10.1) L Phosphorus Level 2.9 MG/DL (2.5-4.9) Magnesium Level 2.4 MG/DL (1.8-2.4) Total Bilirubin 0.2 MG/DL (0.2-1.0) Aspartate Amino Transf (AST/SGOT) 20 U/L (15-37) Alanine Aminotransferase (ALT/SGPT) 27 U/L (12-78) Alkaline Phosphatase 40 U/L (46-116) L Total Protein 6.5 G/DL (6.4-8.2) Albumin 2.8 G/DL (3.4-5.0) L Globulin 3.7 g/dL Albumin/Globulin Ratio 0.8 (1.0-2.7) L Risk Assessment & Plan Assessment: ASA 3 Plan: GA Status Change Before Surgery: No Pre-Antibiotics Drug: Antony Zamora MD Jun 26, 2020 15:51
[2020-06-26 16:00] VITALS: BP 112/70
--- NOTE | 2020-06-26 16:14 | Diagnostic Imaging Report ---
FLUOROSCOPIC POUCHOGRAM Indication: MALFUNCTIONING KOCK POUCH Technique: Multiple fluoroscopic cine stores and images in multiple views after direct instillation of Gastrografin contrast into total fluoroscopy time: 75.9 seconds, dose [id number] mGym2 Comparison: CT abdomen pelvis dated 06/25/2020 Findings: Initial faro dealer radiograph demonstrates postsurgical changes in the central pelvis corresponding to Kock pouch creation. Upon instillation of contrast, there is prompt filling of the Kock pouch without obvious filling defect. There is adequate distention of the pouch, with reflux into the anastomosed ileum. A total of 550 mL of Gastrografin is instilled. IMPRESSION: Pouchogram demonstrating appropriate filling of the Kock pouch and reflux into the ileum. No evidence of filling defect or stricture. Findings discussed with Dr. Mar shortly after performance of examination.
--- NOTE | 2020-06-26 19:12 | NUR ---
NURSE HAND-OFF: Important Events on Shift:Pouchogram XR done, BCIR diet started after pouchogram, Ambulated in halls x4, c/o mild right hip/thigh pain due to activity (Dr. Mar paged with detailed message) Patient Status: stable Diet: BCIR Pending Orders: LABS in AM Pending Results/Labs:CBC CMP MG PHOS 06/27 Pending MD notification: Dr. Mar paged for pain medication Latest Vital Signs: Temperature 97.3 , Pulse 72 , B/P 112 /70 , Respiratory Rate 20 , O2 SAT 94 , Room Air, O2 Flow Rate . Vital Sign Comment: none Latest Coelho Fall Score: 35 Fall Risk: Medium Risk Safety Measures: Call light Within Reach, Bed Alarm Zone 1, Side Rails Side Rails x2, Bed position Low and Locked. Fall Precautions: Patient Fall Education Report given to Bruna RN.
--- NOTE | 2020-06-26 19:30 | NUR ---
NURSE NOTES: Receive a report from PACHECO Garcia. Round is made. Awake and alert. Using bathroom with steady gaits. Ileostomy is drained with natural gravity q3hr flushing. No N/V noted. TPN is running via DESI PICC. Call light within reach. Will continue to monitor.
--- NOTE | 2020-06-26 19:45 | NUR ---
NURSE NOTES: Receive orders from Dr. Mar for pain medication. Order read back. Orders noted and carried out.
[2020-06-26 20:00] VITALS: BP 123/72
[2020-06-26] MEDS: Dyna-Hex 2% Top Sol 2oz TOPIC SCH (20:54)
[2020-06-26] MEDS: Fat Emulsion Iv 20% 216 ML in Tpn 1,584 ML IV SCH (20:56)
--- NOTE | 2020-06-26 21:00 | NUR ---
NURSE NOTES: Given prn Ibuprofen for right leg area soreness after ambulation. Noted discoloration on PICC site after insertion but denies pain at this time. No bleeding or swelling noted. Will continue to monitor.
[2020-06-27] VITALS: BP 119/69
[2020-06-27 04:30] VITALS: BP 118/71
[2020-06-27 05:44] LABS: BASOPHILS % (AUTO) 1.2 % (0.0-2.0); EOSINOPHILS % (AUTO) 6.5 % (0.0-3.0); HEMATOCRIT 35.9 % (37.0-47.0); HEMOGLOBIN 12.5 G/DL (12.0-16.0); MEAN CORPUSCULAR VOLUME 85 FL (80-99); MONOCYTES % (AUTO) 7.7 % (1.0-10.0); NEUTROPHILS % (AUTO) 68.7 % (45.0-75.0); PLATELET COUNT 201 K/UL (150-450); RED BLOOD COUNT 4.25 M/UL (4.20-5.40); RED CELL DISTRIBUTION WIDTH 14.4 % (11.6-14.8); WHITE BLOOD COUNT 5.7 K/UL (4.8-10.8)
[2020-06-27] MEDS: NovoLOG Insulin Flexpen SUBQ SCH ×4 (06:00→18:00)
--- NOTE | 2020-06-27 06:00 | NUR ---
NURSE NOTES: Soreness on leg relived. No N/V noted. TPN is running as ordered. Will continue to monitor. 12hr output Urine: 700ml Ileostomy: 620ml
[2020-06-27 06:09] LABS: ALANINE AMINOTRANSFERASE 36 U/L (12-78); ALBUMIN 2.8 G/DL (3.4-5.0); ALBUMIN/GLOBULIN RATIO 0.8 (1.0-2.7); ALKALINE PHOSPHATASE 44 U/L (46-116); ANION GAP 6 mmol/L (5-15); ASPARTATE AMINO TRANSFERASE 25 U/L (15-37); BILIRUBIN,TOTAL 0.2 MG/DL (0.2-1.0); BLOOD UREA NITROGEN 22 mg/dL (7-18); CALCIUM 8.3 MG/DL (8.5-10.1); CARBON DIOXIDE 28 MMOL/L (21-32); CHLORIDE 105 MMOL/L (98-107); CREATININE 0.7 MG/DL (0.55-1.30); PHOSPHORUS 3.8 MG/DL (2.5-4.9); POTASSIUM 3.8 MMOL/L (3.5-5.1); SODIUM 138 MMOL/L (136-145)
--- NOTE | 2020-06-27 06:50 | NUR ---
NURSE HAND-OFF: Important Events on Shift: Soreness on leg--resolved Patient Status: [stable] Diet: [BCIR low residue diet] Pending Orders: [] Pending Results/Labs:[] Pending MD notification:[] Latest Vital Signs: Temperature 97.5 , Pulse 67 , B/P 118 /71 , Respiratory Rate 16 , O2 SAT 97 , Room Air, O2 Flow Rate . Vital Sign Comment: [] Latest Coelho Fall Score: 35 Fall Risk: Medium Risk Safety Measures: Call light Within Reach, Bed Alarm Zone 1, Side Rails Side Rails x2, Bed position Low and Locked. Fall Precautions: Patient Fall Education
--- NOTE | 2020-06-27 07:30 | NUR ---
NURSE NOTES: Received report from o RN. Patient is awake and oriented, in no distress, denies pain. Ileo to gravity drainage, DESI PICC running TPN per order. On BCIR diet and tolerating well, denies N/V. Updated on plan of care. Side rails upx2, bed low and locked, call light within reach.
--- NOTE | 2020-06-27 07:30 | NUR ---
HAND-OFF: Report given to PACHECO Elizabeth. Round is made.
[2020-06-27 08:00] VITALS: BP 132/78
--- NOTE | 2020-06-27 09:48 | General Progress Note ---
Progress Note Progress Note Doing well with indwelling Kock pouch catheter to drainage Abdomen soft Tolerating TPN CBC stable BUN up 22 Mg 1.8 Albumin 2.8 Imp: malfunctioning Kock pouch Pre-admission malnutrition Plan; continue TPN prepare for surgery 06/27 stoma revision possible laparotomy bowel prep tomorrow Mg infusion f/u labs Dandy Mar MD Jun 27, 2020 09:48
[2020-06-27] MEDS: Lisinopril 2.5mg tab ORAL SCH (09:54)
[2020-06-27] MEDS: Flonase Nasal Inhaler 16gm NASAL SCH (09:54)
[2020-06-27] MEDS: Sertraline 50mg tab ORAL SCH (09:54)
[2020-06-27 11:42] VITALS: BP 126/75
[2020-06-27 16:00] VITALS: BP 120/69
[2020-06-27] MEDS ORDERED: NS Irrig 1000ml ONE (16:14)
[2020-06-27] MEDS ORDERED: Tubing IV Secondary IV ONE (16:14)
[2020-06-27] MEDS ORDERED: NS 275ml ONE (16:14)
--- NOTE | 2020-06-27 18:00 | NUR ---
NURSE NOTES: Total ileo output: +620mL Total urine output: 600mL
--- NOTE | 2020-06-27 19:30 | NUR ---
NURSE NOTES: Receive a report from PACHECO Elizabeth. Round is done. Pt is awake and alert. Denies pain. Pt is aware of planning on surgery on Monday. Ileostomy is drained in natural gravity with 3hr flushing. No N/V/bloating noted. TPN is running via DESI as ordered. Call light within reach. Will continue to monitor.
--- NOTE | 2020-06-27 19:34 | NUR ---
NURSE HAND-OFF: Important Events on Shift: Ambulated, tolerating diet well. Patient Status: stable Diet: BCIR--> clear liquid tomorrow morning Pending Orders: N/A Pending Results/Labs: N/A Pending MD notification: N/A Latest Vital Signs: Temperature 97.8 , Pulse 67 , B/P 120 /69 , Respiratory Rate 18 , O2 SAT 94 , Room Air Vital Sign Comment: VS stable Latest Coelho Fall Score: 35 Fall Risk: Medium Risk Safety Measures: Call light Within Reach, Bed Alarm Zone 1, Side Rails Side Rails x2, Bed position Low and Locked. Fall Precautions: Patient Fall Education Report given to Bruna RN.
[2020-06-27 20:00] VITALS: BP 110/61
[2020-06-27] MEDS: Dyna-Hex 2% Top Sol 2oz TOPIC SCH (20:37)
[2020-06-27] MEDS: Fat Emulsion Iv 20% 216 ML in Tpn 1,584 ML IV SCH (20:39)
[2020-06-28] VITALS: BP 119/65
[2020-06-28] MEDS: NovoLOG Insulin Flexpen SUBQ SCH ×5 (06:00→23:34)
--- NOTE | 2020-06-28 06:00 | NUR ---
NURSE NOTES: Denies pain. Slept well overnight. Will continue to monitor. 12hr output Urine: 1400ml Ileostomy: 525ml
[2020-06-28 08:00] VITALS: BP 127/78
--- NOTE | 2020-06-28 08:01 | NUR ---
NURSE NOTES: Received report from Gho RN. Patient is awake and oriented, sitting in chair, in no distress, states she feels well but has generalized aching in legs/hips, will medicate per order. Ileo to gravity drainage, patient on clear liquid diet per order and tolerating well. TPN running per order via DESI PICC, dressing intact, clean. Patient updated on plan of care. Call light within reach.
[2020-06-28] MEDS: Sertraline 50mg tab ORAL SCH (08:49)
[2020-06-28] MEDS: Lisinopril 2.5mg tab ORAL SCH (08:49)
[2020-06-28] MEDS: Flonase Nasal Inhaler 16gm NASAL SCH (08:50)
--- NOTE | 2020-06-28 09:35 | General Progress Note ---
Progress Note Progress Note Doing welll with TPN and continuous drainage of Kock pouch. Abdomen soft labs pending Plan: surgery in AM - stoma revision or depth, possible laparotomy with revision of Kock pouch and possible gastrostomy. Full discussion with patient including indications, alternatives, options and risks (bleeding, infection, inhjury to adjacent structures or organs, DVT despite prophylaxis, recurring difficulties with function or structure of Kock pouch that could require additional surgery; all questions answered. Iv antibiotics Cleocin + Unasyn, Heparin SQ pre-op Dandy Mar MD Jun 28, 2020 09:35
[2020-06-28 09:50] LABS: BASOPHILS % (AUTO) 1.5 % (0.0-2.0); EOSINOPHILS % (AUTO) 6.6 % (0.0-3.0); HEMATOCRIT 36.4 % (37.0-47.0); HEMOGLOBIN 12.3 G/DL (12.0-16.0); LYMPHOCYTES % (AUTO) 19.8 % (20.0-45.0); MEAN CORPUSCULAR VOLUME 86 FL (80-99); MONOCYTES % (AUTO) 8.6 % (1.0-10.0); NEUTROPHILS % (AUTO) 63.5 % (45.0-75.0); PLATELET COUNT 202 K/UL (150-450); RED BLOOD COUNT 4.26 M/UL (4.20-5.40); RED CELL DISTRIBUTION WIDTH 14.8 % (11.6-14.8); WHITE BLOOD COUNT 5.2 K/UL (4.8-10.8)
[2020-06-28 10:23] LABS: ALANINE AMINOTRANSFERASE 32 U/L (12-78); ALBUMIN 2.8 G/DL (3.4-5.0); ALBUMIN/GLOBULIN RATIO 0.8 (1.0-2.7); ALKALINE PHOSPHATASE 41 U/L (46-116); ANION GAP 7 mmol/L (5-15); ASPARTATE AMINO TRANSFERASE 17 U/L (15-37); BILIRUBIN,TOTAL 0.2 MG/DL (0.2-1.0); BLOOD UREA NITROGEN 23 mg/dL (7-18); CALCIUM 8.1 MG/DL (8.5-10.1); CARBON DIOXIDE 25 MMOL/L (21-32); CHLORIDE 106 MMOL/L (98-107); CREATININE 0.5 MG/DL (0.55-1.30); PHOSPHORUS 2.9 MG/DL (2.5-4.9); POTASSIUM 4.1 MMOL/L (3.5-5.1); SODIUM 137 MMOL/L (136-145)
[2020-06-28 12:00] VITALS: BP 128/76
[2020-06-28] MEDS: Neomycin Sulfate 500mg Tab ORAL SCH ×3 (12:10→20:36)
[2020-06-28 16:00] VITALS: BP 134/82
--- NOTE | 2020-06-28 18:00 | NUR ---
NURSE NOTES: Total ileo output: +1120mL Total urine output: 700mL
--- NOTE | 2020-06-28 19:11 | NUR ---
NURSE HAND-OFF: Important Events on Shift: Prepared for surgery, ambulated, tolerating diet, NPO at midnight. Patient Status: status Diet: clear liquid, NPO at midnight Pending Orders: N/A Pending Results/Labs: N/A Pending MD notification: N/A Latest Vital Signs: Temperature 97.7 , Pulse 64 , B/P 134 /82 , Respiratory Rate 16 , O2 SAT 96 , Room Air. Vital Sign Comment: VS stable Latest Coelho Fall Score: 35 Fall Risk: Medium Risk Safety Measures: Call light Within Reach, Bed Alarm Zone 1, Side Rails Side Rails x2, Bed position Low and Locked. Fall Precautions: Patient Fall Education Report given to Kanchan BERGMAN.
[2020-06-28 20:00] VITALS: BP 129/79
[2020-06-28] MEDS: Dyna-Hex 2% Top Sol 2oz TOPIC SCH (20:36)
[2020-06-28] MEDS: Fat Emulsion Iv 20% 216 ML in Tpn 1,584 ML IV SCH (20:38)
[2020-06-28] MEDS: Ampicillin/Sulbactam Sod 3 GM in NS 110 ML IV SCH (23:17)
[2020-06-28] MEDS: Clindamycin 600mg 50 ML IV SCH (23:17)
[2020-06-28 23:35] VITALS: BP 119/74
[2020-06-29] VITALS (15 sets, daily range): BP systolic 116–141; BP diastolic 71–87
[2020-06-29] MEDS: Clindamycin 600mg 50 ML IV SCH ×4 (05:13→23:15)
[2020-06-29] MEDS: Ampicillin/Sulbactam Sod 3 GM in NS 110 ML IV SCH ×4 (05:25→23:15)
[2020-06-29] MEDS: NovoLOG Insulin Flexpen SUBQ SCH ×4 (05:29→23:14)
[2020-06-29] MEDS ORDERED: Heparin 5000 units/ml inj SUBQ SCH (05:30)
--- NOTE | 2020-06-29 06:14 | NUR ---
nurse's notes: total UOP = 1350 NET ILEO (LESS WATER FLUSHES) = 940
--- NOTE | 2020-06-29 06:31 | NUR ---
NURSE HAND-OFF: Important Events on Shift: none at this point of the shift; detailed total Input and Output in paper chart; totals can be seen in echart; denies any pain or any distress; kept NPO since midnight for a scheduled stoma revision, poss lab and revision of Kock pouch under Dr. Mar; otherwise, no significant events this shift. Patient Status: stable Diet: see chart Pending Orders: see chart Pending Results/Labs:see chart Pending MD notification: none Latest Vital Signs: Temperature 97.6 , Pulse 63 , B/P 121 /77 , Respiratory Rate 18 , O2 SAT 96 , Room Air, O2 Flow Rate . Vital Sign Comment: stable; afebrile WNL Latest Coelho Fall Score: 35 Fall Risk: Medium Risk Safety Measures: Call light Within Reach, Bed Alarm Zone 1, Side Rails Side Rails x2, Bed position Low and Locked. Fall Precautions: Patient Fall Education Report will be given to Emiliana Buckley RN.
[2020-06-29] MEDS ORDERED: Rocuronium Bromide 50mg/5ml Inj IV ONE (06:53)
--- NOTE | 2020-06-29 06:59 | Immediate Post-Op Evaluation ---
Immediate Post-Op Evalulation Immediate Post-Op Evalulation Procedure: Revision of Fox Pouch Date of Evaluation: Jun 29, 2020 Time of Evaluation: 09:29 IV Fluids: 300 LR Blood Products: 0 Estimated Blood Loss: 10 Urinary Output: 0 Blood Pressure Systolic: 134 Blood Pressure Diastolic: 87 Pulse Rate: 84 Respiratory Rate: 16 O2 Sat by Pulse Oximetry: 99 Temperature (Fahrenheit): 97.1 Pain Score (1-10): 2 Nausea: No Vomiting: No Complications 0 Patient Status: awake, reacts, patent, extubated, none Hydration Status: adequate Given Within 1 Hr of Incision: Yes Antony Torres MD Jun 29, 2020 06:59
[2020-06-29] MEDS ORDERED: LORazepam Inj 2mg/ml 1ml IV PRN (07:00)
[2020-06-29] MEDS ORDERED: HYDROcodone/Acetamin 5/325 tab ORAL PRN (07:00)
[2020-06-29] MEDS ORDERED: oxyCODONE HCL/Acetaminophen 5/325mg ORAL PRN (07:00)
[2020-06-29] MEDS ORDERED: Atropine Sulfate 0.4mg/ml inj IVP PRN (07:00)
[2020-06-29] MEDS ORDERED: fentaNYL 100 mcg/2 mL IV PRN (07:00)
[2020-06-29] MEDS ORDERED: HYDROcodone/Acetamin 7.5/325 tab ORAL PRN (07:00)
[2020-06-29] MEDS ORDERED: Labetalol 5mg/ml 20ml vial IV PRN (07:00)
[2020-06-29] MEDS ORDERED: DiphenhydrAMINE 50mg/ml Inj IVP PRN (07:00)
[2020-06-29] MEDS ORDERED: Hydromorphone 0.5mg/0.5ml inj IVP PRN (07:00)
[2020-06-29] MEDS ORDERED: LR 1000ml 1,000 ML IVLG SCH (07:00)
[2020-06-29] MEDS ORDERED: Midazolam 2mg/2ml Inj IVP PRN (07:00)
[2020-06-29] MEDS ORDERED: Acetaminophen (Non formulary) 100 ML IV ONE (07:00)
[2020-06-29] MEDS ORDERED: Lidocaine 1% Plain 30 ml INJ ONE (07:01)
[2020-06-29] MEDS ORDERED: Lidocaine 1% MPF 10mg/ml 5ml ONE (07:01)
[2020-06-29] MEDS ORDERED: Sodium Chloride 10ml vial INJ ONE (07:01)
[2020-06-29] MEDS ORDERED: fentaNYL 100 mcg/2 mL IV ONE (07:02)
[2020-06-29] MEDS ORDERED: Bacitracin 50000 Units Vial ONE (07:19)
[2020-06-29] MEDS ORDERED: LR 1000ml ONE (07:30)
[2020-06-29] MEDS ORDERED: propofoL 1,000mg/100ml IV ONE (07:30)
[2020-06-29] MEDS ORDERED: Sterile Water Irrig 1000ml IRRIG ONE (07:30)
--- NOTE | 2020-06-29 07:33 | Pre-Procedure Note/Attestation ---
Pre-Procedure Note/Attestation Complete Prior to Procedure Planned Procedure: not applicable Procedure Narrative: revision of Kock pouch stoma in depth, possible laparotomy with revision of Kock pouch, possible gastrostomy Indications for Procedure Pre-Operative Diagnosis: Malfunctioning Kock Pouch with inability to intubate Attestation I attest that I discussed the nature of the procedure; its benefits; risks and complications; and alternatives (and the risks and benefits of such alternatives), prior to the procedure, with the patient (or the patient's legal route service representative). I attest that, if there was a reasonable possibility of needing a blood transfusion, the patient (or the patient's legal route service representative) was given the [place] Department [employer] standardized written summary, pursuant to the [place] Blood Safety Act ([place] Health and Safety Code # 1645, as amended). I attest that I re-evaluated the patient just prior to the surgery and that there has been no change in the patient's H&P, except as documented below:none Dandy Mar MD Jun 29, 2020 07:33
--- NOTE | 2020-06-29 07:45 | NUR ---
NURSE NOTES: Pt was already off the unit when received the report from PACHECO Hemphill.
[2020-06-29] MEDS ORDERED: NS Irrig 1000ml IRRIG ONE ×2 (07:56→08:33)
[2020-06-29] MEDS ORDERED: Neostigmine 1mg/ml 10ml Inj ONE (08:47)
[2020-06-29] MEDS ORDERED: Glycopyrrolate 0.2mg/ml 1ml Vial ONE (08:47)
--- NOTE | 2020-06-29 09:14 | 48 Hour Post Anesthesia Eval ---
Post Anesthesia Evaluation Procedure: Revision of Fox Pouch Date of Evaluation: Jun 29, 2020 Time of Evaluation: 11:43 Blood Pressure Systolic: 131 0: 78 Pulse Rate: 74 Respiratory Rate: 19 Temperature (Fahrenheit): 98 O2 Sat by Pulse Oximetry: 99 Airway: patent Nausea: No Vomiting: No Pain Intensity: 2 Hydration Status: adequate Cardiopulmonary Status: Stable Mental Status/LOC: patient returned to baseline Follow-up Care/Observations: 0 Post-Anesthesia Complications: 0 Follow-up care needed: N/A Antony Torres MD Jun 29, 2020 09:14
[2020-06-29] MEDS ORDERED: PCA Morphine 1mg/ml 30 ML IV PRN (09:15)
[2020-06-29] MEDS ORDERED: Naloxone 0.4mg/ml Inj IVP PRN (09:15)
[2020-06-29] MEDS ORDERED: Rate Change PCA 1 Each MISC PRN (09:15)
[2020-06-29] MEDS ORDERED: PCA Education Pamphlet MISC ONE (09:15)
[2020-06-29] MEDS ORDERED: LORazepam 1mg tab ORAL PRN (09:15)
--- NOTE | 2020-06-29 09:16 | Brief Operative Note ---
Immediate Post Operative Note Operative Note Pre-op Diagnosis: Malfunctioning Kock Pouch with inability to intubate Procedure: Revision of Kock Pouch stoma in depth Post-op Diagnosis: same Post-op Diagnosis: same as pre-op Findings: consistent w/pre-op dx studies Surgeon: taylor Additional Surgeons: kyler Anesthesiologist: justin Anesthesia: general Specimen: yes - Kock pouch stoma Complications: none Condition: stable Fluids: see anesthesia record Estimated Blood Loss: minimal Drains: other - 28 Fr Garrett to Kock pouch Implant(s) used?: No Dandy Mar MD Jun 29, 2020 09:16
--- NOTE | 2020-06-29 10:25 | NUR ---
NURSE NOTES: Patient arrived after revision of kock pouch. Pt is fatigued, asleep. No SOB noted. Denies any pain at this time. 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 LLQ ileostomy bag is patent. Garrett catheter is patent. SCD is on BLE. DESI PICC line is running LR at this time. Provided call light and bed in lowest position, will continue to monitor.
--- NOTE | 2020-06-29 10:30 | Operative Note - Dictated ---
DATE OF OPERATION: 06/29/2020 SURGEON: Dandy Mar MD. ADDITIONAL SURGEON: Fernando Day MD. ANESTHESIOLOGIST: Antony Torres M.D. TYPE OF ANESTHESIA: General endotracheal. PREOPERATIVE DIAGNOSES: 1. 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 2. History of ulcerative colitis. 3. STATUS POST MULTIPLE ABDOMINAL OPERATIONS: 3.1. Proctocolectomy and Marion ileostomy in 1975. 3.2. Kock pouch continent ileostomy in 1979. 3.3. Revision of Kock pouch valve 1979. 3.4. Total abdominal hysterectomy and bilateral salpingo-oophorectomy 2000. 3.5. Revision of Kock pouch with creation of new valve and stoma with relocation of the stoma to the left lower quadrant September 19, 2012. 3.6. Revision of Kock pouch stoma in depth May 2013. POSTOPERATIVE DIAGNOSES: 1. 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 2. History of ulcerative colitis. 3. STATUS POST MULTIPLE ABDOMINAL OPERATIONS: 3.1. Proctocolectomy and Marion ileostomy in 1975. 3.2. Kock pouch continent ileostomy in 1979. 3.3. Revision of Kock pouch valve 1979. 3.4. Total abdominal hysterectomy and bilateral salpingo-oophorectomy 2000. 3.5. Revision of Kock pouch with creation of new valve and stoma with relocation of the stoma to the left lower quadrant September 19, 2012. 3.6. Revision of Kock pouch stoma in depth May 2013. OPERATION PERFORMED: Revision of Kock pouch stoma in depth. DESCRIPTION OF PROCEDURE: The patient was taken to the operating room and under general anesthesia with sequential compression device stockings and Garrett catheter in place, her entire abdomen was prepped and draped in usual fashion because of the possibility that she will require laparotomy rather than just the stoma revision to correct her difficulty intubating her Kock pouch. The indwelling catheter that had been placed several days ago when she underwent endoscopy was measured when removed as 13 cm to be fully into the pouch. Now, the 28-Armenian Garrett catheter was placed through the stoma and there was difficulty manipulating it fully into the pouch approximately 5 cm deep. A transversely oriented elliptical incision was made to circumscribe the stoma and it was mobilized circumferentially below the rectus fascia were there were no further evidence of palpable scar tissue or bands. An excess of 3.5 centimeters redundant access segment had been elevated. Now with the stoma tissue oriented laterally, there was some difficulty manipulating the 28-Armenian Garrett catheter into the pouch but when the stoma was placed medially in the peristomal incision the catheter went directly into the pouch. Accordingly, the lateral aspect of the stoma was closed with interrupted 4-0 Monocryl subcuticular suture before maturing the stoma. The redundancy was excised utilizing the Digicompanion vessel sealing electrosurgical device to do the resection and control the mesentery. Now the stoma was primarily matured with continuous 2-0 chromic locking suture starting at the 3 and 9 o'clock position. A very satisfactory stoma was achieved. The 28-Armenian Garrett catheter went readily in and out of the pouch, confirmed by irrigation and was sutured to the skin with two sutures of 2-0 silk and flushed and connected to a gravity drainage bag. Final sponge and needle counts were correct. The patient tolerated the procedure well and left the operating room in good condition. Dandy Mar M.D. DR: Siri JOB#: [id number] CC: REYNA
--- NOTE | 2020-06-29 11:48 | NUR ---
RD ASSESSMENT & RECOMMENDATIONS SEE CARE ACTIVITY FOR COMPLETE ASSESSMENT DAILY ESTIMATED NEEDS: Needs based on General, Surgery/ 66kg 25-30 kcals/kg 2253-2337 total kcals 1-2 g protein/kg 66-132 g total protein 25-30 mL/kg 5450-3439 total fluid mLs NUTRITION DIAGNOSIS: Altered GI function R/T h/o UC, admitted w/ malfunctioning Kock pouch with inability to intubate to evacuate stool as evidenced by s/p revision of Kock pouch stoma, on TPN, to start CLD. CURRENT DIET:NPO PO DIET RECOMMENDATIONS: Advance diet per MD PARENTERAL NUTRITION RECOMMENDATIONS: D/AA Rate: 66 IL Rate: 9 Total Rate: 75 Volume: 1800 % Dextrose: 18 % AA: 5.4 Energy (kcals/kg): 1743 Protein (g/kg protein): 86 Nonprotein KCALS: 1401 GIR (mg CHO/kg/min): 3.0 % Fat KCALS: 25 NCP: N Ratio: 102:1 TPN Comment: *D18% AA 5.4% @ 66ml/hr + IL 20% @ 9ml/hr-> all 3:1, total of 75ml/dja10eto *TPN @ goal provides 100% est kcal/prot needs ADDITIONAL RECOMMENDATIONS: * Monitor lytes closely w/ TPN, replete as needed * Monitor LFTs and BGs w/ TPN, need for TPN adjustment * Monitor wt trend, rec standing wt as able for accuracy. * Monitor for diet advancement and tolerance
[2020-06-29] MEDS ORDERED: Ampicillin/Sulbactam Sod 3 GM in NS 110 ML IV SCH (12:00)
[2020-06-29] MEDS: Sertraline 50mg tab ORAL SCH (12:24)
[2020-06-29] MEDS: Lisinopril 2.5mg tab ORAL SCH (12:25)
[2020-06-29] MEDS: Flonase Nasal Inhaler 16gm NASAL SCH (12:30)
--- NOTE | 2020-06-29 13:38 | NUR ---
CASE MANAGEMENT:REVIEW SI;S/P KOCK POUCH STOMA REVISION IN DEPTH 96.7 68 18 132/80 94% 2L NC BG 118 IS;IVF D5 AT 50 ML/HR MORPHINE SULFATE MESSAGE BROKER DEVELOPER CLINDAMYCIN IV Q6 AMPICILLIN/SULBACTAM IV Q6 TPN IV MED SURG STATUS DCP;FROM HOME
[2020-06-29] MEDS ORDERED: D5 1/4NS w/KCl 20mEq 1,000 ML IV SCH (14:00)
--- NOTE | 2020-06-29 16:10 | NUR ---
NURSE NOTES: Patient ambulated hallway x 2 with RN assistance without any discomfort.
--- NOTE | 2020-06-29 16:53 | NUR ---
NURSE NOTES: Pt c/o sore throat and called Dr. Mar. Dr. Mar ordered cepacol q2hrs prn for sore throat. Noted and carried out.
[2020-06-29] MEDS ORDERED: PRINIVIL10 MG ORAL (17:58)
[2020-06-29] MEDS ORDERED: NASACORT10.8 ML NS (17:58)
[2020-06-29] MEDS ORDERED: VITAMIN D350 MCG PO (17:58)
[2020-06-29] MEDS ORDERED: IRON236 MG PO (17:59)
[2020-06-29] MEDS ORDERED: B COMPLEX1 EACH ORAL (17:59)
[2020-06-29] MEDS ORDERED: Tubing IV Secondary IV ONE (18:39)
[2020-06-29] MEDS ORDERED: NS Irrig 1000ml ONE (18:39)
--- NOTE | 2020-06-29 18:54 | NUR ---
NURSE HAND-OFF: Important Events on Shift:Revision of kock pouch Patient Status: stable Diet: clear liquid Pending Orders: n/a Pending Results/Labs:n/a Pending MD notification:n/a Latest Vital Signs: Temperature 97.5 , Pulse 68 , B/P 116 /74 , Respiratory Rate 16 , O2 SAT 99 , Nasal Cannula, O2 Flow Rate 2.0 . Vital Sign Comment: stable Latest Coelho Fall Score: 35 Fall Risk: Medium Risk Safety Measures: Call light Within Reach, Bed Alarm Zone 1, Side Rails Side Rails x2, Bed position Low and Locked. Fall Precautions: Patient Fall Education Report given to PACHECO Abraham.
[2020-06-29] MEDS: PCA shift volume MISC SCH (19:00)
--- NOTE | 2020-06-29 19:20 | NUR ---
NURSE NOTES: Received report from PACHECO Buckley. Pt is A&Ox4, VSS, bed locked and in lowest position, side rails up x2, call light within reach. IVF infusing well. Will continue to monitor.
[2020-06-29] MEDS: Dyna-Hex 2% Top Sol 2oz TOPIC SCH (20:27)
[2020-06-29] MEDS: Fat Emulsion Iv 20% 216 ML in Tpn 1,584 ML IV SCH (20:27)
--- NOTE | 2020-06-29 21:45 | NUR ---
NURSE NOTES: Ambulating with assist in hallway. In no acute distress, steady gait.
[2020-06-30] VITALS (8 sets, daily range): BP systolic 112–133; BP diastolic 56–72
[2020-06-30] MEDS: NovoLOG Insulin Flexpen SUBQ SCH ×3 (06:00→17:47)
[2020-06-30] MEDS: Ampicillin/Sulbactam Sod 3 GM in NS 110 ML IV SCH ×3 (06:08→17:47)
[2020-06-30] MEDS: Clindamycin 600mg 50 ML IV SCH ×3 (06:09→17:47)
[2020-06-30 06:29] LABS: BASOPHILS % (AUTO) 0.2 % (0.0-2.0); HEMOGLOBIN 11.1 G/DL (12.0-16.0); LYMPHOCYTES % (AUTO) 9.4 % (20.0-45.0); MEAN CORPUSCULAR VOLUME 85 FL (80-99); MONOCYTES % (AUTO) 6.2 % (1.0-10.0); NEUTROPHILS % (AUTO) 84.1 % (45.0-75.0); PLATELET COUNT 176 K/UL (150-450); RED BLOOD COUNT 3.77 M/UL (4.20-5.40); RED CELL DISTRIBUTION WIDTH 14.4 % (11.6-14.8); WHITE BLOOD COUNT 8.5 K/UL (4.8-10.8)
[2020-06-30 06:44] LABS: ALANINE AMINOTRANSFERASE 44 U/L (12-78); ALBUMIN 2.5 G/DL (3.4-5.0); ALBUMIN/GLOBULIN RATIO 0.8 (1.0-2.7); ALKALINE PHOSPHATASE 38 U/L (46-116); ANION GAP 8 mmol/L (5-15); ASPARTATE AMINO TRANSFERASE 33 U/L (15-37); BILIRUBIN,TOTAL 0.2 MG/DL (0.2-1.0); BLOOD UREA NITROGEN 13 mg/dL (7-18); CALCIUM 7.9 MG/DL (8.5-10.1); CARBON DIOXIDE 26 MMOL/L (21-32); CHLORIDE 106 MMOL/L (98-107); CREATININE 0.5 MG/DL (0.55-1.30); PHOSPHORUS 2.7 MG/DL (2.5-4.9); POTASSIUM 3.5 MMOL/L (3.5-5.1); SODIUM 140 MMOL/L (136-145)
--- NOTE | 2020-06-30 07:04 | NUR ---
NURSE HAND-OFF: Important Events on Shift: pain management via BUCKLE STRAP DRUM OPERATOR and sore throat Patient Status: calm and stable Diet: clear liquid Pending Orders: Pending Results/Labs: Pending MD notification: Latest Vital Signs: Temperature 97.9 , Pulse 58 , B/P 126 /68 , Respiratory Rate 18 , O2 SAT 97 , Room Air, O2 Flow Rate 2.0 . Vital Sign Comment: VSS Latest Coelho Fall Score: 35 Fall Risk: Medium Risk Safety Measures: Call light Within Reach, Bed Alarm Zone 1, Side Rails Side Rails x2, Bed position Low and Locked. Fall Precautions: Patient Fall Education Report given to PACHECO Giron.
[2020-06-30] MEDS: PCA shift volume MISC SCH ×2 (07:19→19:26)
--- NOTE | 2020-06-30 07:30 | NUR ---
NURSE NOTES: Pt lying in bed w/bed in lowest position and call light/CLIENT ENGAGEMENT MANAGER button within reach. Pt A&Ox4, VSS, and in no apparent distress. DESI PICC line intact/asymptomatic w/IVF infusing; ileo and F/C patent/draining well; and surgical dressing C/D/I. Pt has no complaints or concerns at this time. Will continue to monitor.
[2020-06-30] MEDS ORDERED: Naloxone 0.4mg/ml Inj IVP PRN (08:53)
--- NOTE | 2020-06-30 08:59 | General Progress Note ---
Progress Note Progress Note AVSS comfortable with demand dosing Morphine BUSINESS MANAGEMENT ANALYST. Ambulated. tolerated small amount clean liquids Abdomen soft, stoma pink with mild peristomal swelling WBC 8500 Hgb down 11.1 BUN down 13 Cr 0.5 Phos 2.7 Mg 1.9 albumin 2.5 Urine 2950 Kock pouch ileo 145 enteric fluid overnight Imp: Stable Plan: remove urinary Garrett catheter now Maintain indwelling Kock pouch catheter to continuous drainage Mg and Phos infusions f/u labs with iron panel, B12 and folic acid continue BUSINESS MANAGEMENT ANALYST Dandy Mar MD Jun 30, 2020 08:59
[2020-06-30] MEDS ORDERED: Rate Change PCA 1 Each MISC PRN (09:00)
[2020-06-30] MEDS ORDERED: PCA Morphine 1mg/ml 30 ML IV PRN (09:00)
[2020-06-30] MEDS ORDERED: LORazepam 1mg tab ORAL PRN (09:15)
[2020-06-30] MEDS: Sertraline 50mg tab ORAL SCH (09:34)
[2020-06-30] MEDS: Lisinopril 2.5mg tab ORAL SCH (09:34)
[2020-06-30] MEDS: Flonase Nasal Inhaler 16gm NASAL SCH (09:38)
[2020-06-30] MEDS ORDERED: Potassium Phosphate 15mm/250ml 250 ML IVPB ONE ×2 (10:00→16:00)
--- NOTE | 2020-06-30 19:30 | NUR ---
NURSE NOTES: Receive a report from PACHECO Giron.
--- NOTE | 2020-06-30 19:30 | NUR ---
NURSE HAND-OFF: Important Events on Shift: Pt ambulate around unit twice today; F/C D/C'd and pt voiding well; tolerating BCIR diet well. Patient Status: Stable Diet: BCIR, low residue Pending Orders: None Pending Results/Labs: None Pending MD notification: None Latest Vital Signs: Temperature 98.3 , Pulse 66 , B/P 112 /56 , Respiratory Rate 18 , O2 SAT 93 , Room Air Vital Sign Comment: Stable Latest Coelho Fall Score: 35 Fall Risk: Medium Risk Safety Measures: Call light Within Reach, Bed Alarm Zone 1, Side Rails Side Rails x2, Bed position Low and Locked. Fall Precautions: Patient Fall Education Report given to PACHECO Mcfarland.
--- NOTE | 2020-06-30 19:40 | NUR ---
NURSE NOTES: Pt is awake and alert. No acute distress noted. Ambulating in the unit with steady gaits. Denies pain. Ileostomy drained with gravity. No N/V/ bloating noted. TPN is running via PICC on DESI. Will continue to monitor.
[2020-06-30] MEDS: Dyna-Hex 2% Top Sol 2oz TOPIC SCH (20:28)
[2020-06-30] MEDS: Fat Emulsion Iv 20% 216 ML in Tpn 1,584 ML IV SCH (20:29)
--- NOTE | 2020-06-30 21:00 | NUR ---
NURSE NOTES: Afebrile. Ileostomy drained well after flushing. Denies pain. On CLOUD CONSULTANT-Morphine for pain but did not use for last 4 hrs. Dressing kept dry and clean. Call light within reach. Will continue to monitor.
[2020-06-30] MEDS ORDERED: NS Irrig 1000ml ONE (22:49)
[2020-06-30] MEDS ORDERED: Tubing IV Secondary IV ONE (22:53)
[2020-06-30] MEDS ORDERED: NS 500ML ONE (22:53)
[2020-07-01] VITALS: BP 134/74
--- NOTE | 2020-07-01 | NUR ---
NURSE NOTES: Given prn sleeping pill for sleep. Will continue to monitor.
[2020-07-01] MEDS: Ampicillin/Sulbactam Sod 3 GM in NS 110 ML IV SCH ×5 (00:08→23:27)
[2020-07-01] MEDS: Clindamycin 600mg 50 ML IV SCH ×3 (00:08→11:52)
[2020-07-01 05:30] VITALS: BP 143/82
[2020-07-01] MEDS: NovoLOG Insulin Flexpen SUBQ SCH ×5 (05:51→23:36)
--- NOTE | 2020-07-01 06:00 | NUR ---
NURSE NOTES: No acute distress noted. Denies pain but noted stuffy nose and mild cough. Encourage I/S and oral hydration. Will continue to monitor. Addendum: 07/01/20 at 0657 by Bruna Nolasco RN 12hr output: Urine:1600ml Ileostomy: 495ml Addendum: 07/01/20 at 0703 by Bruna Nolasco RN Noted wet on dressing. Done change dressing.
[2020-07-01 06:13] LABS: BASOPHILS % (AUTO) 1.3 % (0.0-2.0); EOSINOPHILS % (AUTO) 3.6 % (0.0-3.0); HEMATOCRIT 34.8 % (37.0-47.0); HEMOGLOBIN 11.4 G/DL (12.0-16.0); LYMPHOCYTES % (AUTO) 15.2 % (20.0-45.0); MEAN CORPUSCULAR VOLUME 88 FL (80-99); MONOCYTES % (AUTO) 8.9 % (1.0-10.0); NEUTROPHILS % (AUTO) 71.1 % (45.0-75.0); PLATELET COUNT 181 K/UL (150-450); RED BLOOD COUNT 3.94 M/UL (4.20-5.40); RED CELL DISTRIBUTION WIDTH 14.5 % (11.6-14.8); WHITE BLOOD COUNT 7.7 K/UL (4.8-10.8)
[2020-07-01 06:45] LABS: ALANINE AMINOTRANSFERASE 92 U/L (12-78); ALBUMIN 2.7 G/DL (3.4-5.0); ALBUMIN/GLOBULIN RATIO 0.8 (1.0-2.7); ALKALINE PHOSPHATASE 45 U/L (46-116); ANION GAP 4 mmol/L (5-15); ASPARTATE AMINO TRANSFERASE 54 U/L (15-37); BILIRUBIN,TOTAL 0.2 MG/DL (0.2-1.0); BLOOD UREA NITROGEN 19 mg/dL (7-18); CALCIUM 7.7 MG/DL (8.5-10.1); CARBON DIOXIDE 31 MMOL/L (21-32); CHLORIDE 107 MMOL/L (98-107); CREATININE 0.7 MG/DL (0.55-1.30); POTASSIUM 3.5 MMOL/L (3.5-5.1); SODIUM 142 MMOL/L (136-145)
--- NOTE | 2020-07-01 06:57 | NUR ---
NURSE HAND-OFF: Important Events on Shift: sleeping x1, denies pain. Patient Status: [stable] Diet: [BCIR low residue diet] Pending Orders: [] Pending Results/Labs:[] Pending MD notification:[] Latest Vital Signs: Temperature 98.1 , Pulse 71 , B/P 143 /82 , Respiratory Rate 18 , O2 SAT 93 , Room Air, O2 Flow Rate 2.0 . Vital Sign Comment: [] Latest Coelho Fall Score: 35 Fall Risk: Medium Risk Safety Measures: Call light Within Reach, Bed Alarm Zone 1, Side Rails Side Rails x2, Bed position Low and Locked. Fall Precautions: Patient Fall Education
[2020-07-01] MEDS: PCA shift volume MISC SCH (07:00)
[2020-07-01 07:13] LABS: % IRON SATURATION 10 % (15-50); IRON 32 ug/dL (50-175); TOTAL IRON BINDING CAPACITY 311 ug/dL (250-450)
--- NOTE | 2020-07-01 07:30 | NUR ---
HAND-OFF: Report given to PACHECO Elizabeth. Round is made.
--- NOTE | 2020-07-01 07:30 | NUR ---
NURSE NOTES: Received report from Beckio RN. Patient is awake and oriented, in no distress, not reporting any pain. On BCIR diet and tolerating well. [address]ROL settings checked and verified against order. TPN running per order via DESI PICC. Ileo to gravity drainage. Patient updated on plan of care. Side rails upx2, bed low and locked, call light within reach.
[2020-07-01 08:00] VITALS: BP 143/79
--- NOTE | 2020-07-01 08:20 | General Progress Note ---
Progress Note Progress Note AVSS Pain is improved and tolerating BCIR diet. Voiding okay Abdomen soft, stoma pink, peristomal incision healing nicely Urine 2650 Kock pouch ileo 1165 Hgb up 11.4 chem okay B12 and folic acid okay Iron 32 Imp: Improving severe iron deficiency Plan: D/C GENERAL LABOR FORKLIFT OPERATOR continue TPN and indwelling Kock pouch catheter to drainage continue IV antibiotics Venofer 200mg IV qhs Dandy Mar MD Jul 01, 2020 08:20
[2020-07-01] MEDS: Flonase Nasal Inhaler 16gm NASAL SCH (09:14)
[2020-07-01] MEDS: Lisinopril 2.5mg tab ORAL SCH (09:14)
[2020-07-01] MEDS: Sertraline 50mg tab ORAL SCH (09:14)
[2020-07-01 12:00] VITALS: BP 138/94
--- NOTE | 2020-07-01 13:55 | NUR ---
CASE MANAGEMENT:REVIEW SI;POD #2 KOCK POUCH STOMA REVISION 99.9 83 18 143/82 93% ON RA CA 7.7 IRON 32 AST 54 ALT 92 DINESH 2.7 IS;VENOFER IV CLINDAMYCIN IV Q6 AMPICILLIN/SULBACTAM IV Q6 TPN IV ZESTRIL PO QD MED SURG STATUS DCP;FROM HOME PLAN; D/C CUSTOMER RELATIONS CONSULTANT continue TPN and indwelling Kock pouch catheter to drainage continue IV antibiotics Venofer 200mg IV qhs
--- NOTE | 2020-07-01 15:45 | NUR ---
NURSE NOTES: Called and notified Dr. Mar that patient has voided 3150mL of urine so far during shift and has temp of 99.9. Order received, read back, and entered. Will carry out.
[2020-07-01 16:00] VITALS: BP 143/84
[2020-07-01] MEDS ORDERED: NS 275ml ONE (16:05)
[2020-07-01] MEDS ORDERED: NS Irrig 1000ml ONE (16:05)
--- NOTE | 2020-07-01 17:00 | NUR ---
NURSE NOTES: PICC line dressing changed.
[2020-07-01 17:13] LABS: APPEARANCE,URINE CLEAR; BILIRUBIN, URINE NEGATIVE (NEGATIVE); COLOR,URINE PALE YELLOW; GLUCOSE, URINE (UA) NEGATIVE (NEGATIVE); KETONES,URINE NEGATIVE (NEGATIVE); LEUKOCYTE ESTERASE ,URINE NEGATIVE (NEGATIVE); NITRITE,URINE NEGATIVE (NEGATIVE); PH,URINE 7 (4.5-8.0); PROTEIN,URINE NEGATIVE (NEGATIVE); UROBILINOGEN,URINE NORMAL MG/DL (0.0-1.0)
--- NOTE | 2020-07-01 18:00 | NUR ---
NURSE NOTES: Total ileo output: +850mL Urine output: 4050mL
--- NOTE | 2020-07-01 19:20 | NUR ---
NURSE NOTES: Receive a report from PACHECO Elizabeth.
--- NOTE | 2020-07-01 19:30 | NUR ---
NURSE NOTES: Pt is awake and alert. No distress noted. Denies pain. Pt says that she feels better after taking Ibuprofen earlier. Dressing site remain dry and intact. No N/V noted. Ileostomy drainage noted watery without thickness. TPN is running via PICC on DESI as ordered. Afebrile. Call light within reach. Will continue to monitor.
--- NOTE | 2020-07-01 19:36 | NUR ---
NURSE HAND-OFF: Important Events on Shift: Patient ambulated several times. UA sent per order. Tolerating diet well. Patient Status: stable. Diet: BCIR Pending Orders: N/A Pending Results/Labs: N/A Pending MD notification: N/A Latest Vital Signs: Temperature 98.5 , Pulse 77 , B/P 143 /84 , Respiratory Rate 18 , O2 SAT 96 , Room Air. Vital Sign Comment: VS stable Latest Coelho Fall Score: 35 Fall Risk: Medium Risk Safety Measures: Call light Within Reach, Bed Alarm Zone 1, Side Rails Side Rails x2, Bed position Low and Locked. Fall Precautions: Patient Fall Education Report given to Bruna RN.
[2020-07-01 20:00] VITALS: BP 133/79
[2020-07-01] MEDS: Dyna-Hex 2% Top Sol 2oz TOPIC SCH (20:29)
[2020-07-01] MEDS: Fat Emulsion Iv 20% 216 ML in Tpn 1,584 ML IV SCH (20:31)
[2020-07-01] MEDS: Venofer 200mg in NS 110ml IVPB SCH (20:34)
--- NOTE | 2020-07-01 21:00 | NUR ---
NURSE NOTES: Venofer 200mg IVS done without complication. Ileostomy flushing done as ordered. Will continue to monitor.
[2020-07-02] VITALS: BP 122/65
[2020-07-02 04:30] VITALS: BP 130/85
[2020-07-02 05:27] LABS: EOSINOPHILS % (AUTO) 8.6 % (0.0-3.0); HEMATOCRIT 33.5 % (37.0-47.0); HEMOGLOBIN 11.3 G/DL (12.0-16.0); LYMPHOCYTES % (AUTO) 22.5 % (20.0-45.0); MEAN CORPUSCULAR VOLUME 87 FL (80-99); MONOCYTES % (AUTO) 10.1 % (1.0-10.0); NEUTROPHILS % (AUTO) 56.7 % (45.0-75.0); PLATELET COUNT 169 K/UL (150-450); RED BLOOD COUNT 3.85 M/UL (4.20-5.40); RED CELL DISTRIBUTION WIDTH 14.1 % (11.6-14.8); WHITE BLOOD COUNT 5.2 K/UL (4.8-10.8)
[2020-07-02 05:39] LABS: ALANINE AMINOTRANSFERASE 76 U/L (12-78); ALBUMIN 2.4 G/DL (3.4-5.0); ALBUMIN/GLOBULIN RATIO 0.7 (1.0-2.7); ALKALINE PHOSPHATASE 45 U/L (46-116); ANION GAP 5 mmol/L (5-15); ASPARTATE AMINO TRANSFERASE 36 U/L (15-37); BILIRUBIN,TOTAL 0.2 MG/DL (0.2-1.0); BLOOD UREA NITROGEN 18 mg/dL (7-18); CALCIUM 8.1 MG/DL (8.5-10.1); CARBON DIOXIDE 30 MMOL/L (21-32); CHLORIDE 105 MMOL/L (98-107); CREATININE 0.6 MG/DL (0.55-1.30); POTASSIUM 3.6 MMOL/L (3.5-5.1); SODIUM 140 MMOL/L (136-145)
[2020-07-02] MEDS: NovoLOG Insulin Flexpen SUBQ SCH ×3 (06:00→18:00)
--- NOTE | 2020-07-02 06:00 | NUR ---
NURSE NOTES: Pt slept well overnight. Denies pain. No N/V noted. Will continue to monitor. 12hrs Urine: 1300ml Ileostomy: 420ml
[2020-07-02] MEDS: Ampicillin/Sulbactam Sod 3 GM in NS 110 ML IV SCH ×3 (06:14→17:12)
--- NOTE | 2020-07-02 06:59 | NUR ---
NURSE HAND-OFF: Important Events on Shift: Denies pain. Slept well. Patient Status: stable Diet: [BCIR] Pending Orders: [] Pending Results/Labs:[] Pending MD notification:[] Latest Vital Signs: Temperature 97.9 , Pulse 66 , B/P 130 /85 , Respiratory Rate 18 , O2 SAT 94 , Room Air, O2 Flow Rate 2.0 . Vital Sign Comment: [] Latest Coelho Fall Score: 35 Fall Risk: Medium Risk Safety Measures: Call light Within Reach, Bed Alarm Zone 1, Side Rails Side Rails x2, Bed position Low and Locked. Fall Precautions: Patient Fall Education Report given to []. Addendum: 07/02/20 at 0744 by Bruna Nolasco RN Afebrile.
--- NOTE | 2020-07-02 07:20 | NUR ---
NURSE NOTES: Handoff received from o RN. Patient is awake and alert, no signs of distress noted, no reports of pain or discomfort at this time. Ileo catheter is draining to gravity, output is dark green and slightly thick. DESI PICC is intact and asymptomatic and running TPN as ordered. Bed is low and locked, side rails up x2, call light is within reach.
--- NOTE | 2020-07-02 07:25 | NUR ---
HAND-OFF: Report given to Tiffanie BERGMAN. Addendum: 07/02/20 at 2056 by Pete Garcia RN RN justen time idris [id number]
--- NOTE | 2020-07-02 07:30 | NUR ---
HAND-OFF: Report given to PACHECO Londono. Round is done.
[2020-07-02 08:00] VITALS: BP 142/87
[2020-07-02] MEDS: Lisinopril 2.5mg tab ORAL SCH (09:09)
[2020-07-02] MEDS: Sertraline 50mg tab ORAL SCH (09:10)
[2020-07-02] MEDS: Flonase Nasal Inhaler 16gm NASAL SCH (09:10)
[2020-07-02] MEDS ORDERED: NS 275ml ONE (09:27)
[2020-07-02] MEDS ORDERED: Tubing IV Secondary IV ONE (09:27)
[2020-07-02] MEDS ORDERED: NS Irrig 1000ml ONE (09:27)
[2020-07-02] MEDS ORDERED: Pseudoephedrine 30mg tab ORAL SCH (10:52)
--- NOTE | 2020-07-02 10:56 | General Progress Note ---
Progress Note Progress Note AVSS No pain now from stoma revision. c/o nasal and sinus congestion despite flonase and zyrtec Abdomen soft. Stoma and incision healing nicely Urine 5250 Kock pouch ileo 1270 on BCIR diet labs all stable except albumin 2.4 U/A all wnl Imp: Improving with spontaneous diuresis Plan: sudafed prn congestion continue TPN and Iv Unasyn f/u labs maintain indwelling Kock pouch catheter to drainage d/c clindamycin (done last night) Dandy Mar MD Jul 02, 2020 10:56
[2020-07-02 12:00] VITALS: BP 160/91
[2020-07-02] MEDS: Pseudoephedrine 30mg tab ORAL PRN ×2 (15:36→21:12)
[2020-07-02 16:00] VITALS: BP 144/87
--- NOTE | 2020-07-02 18:00 | NUR ---
total urine output: 1500 total true ileo output: +1020
[2020-07-02 20:00] VITALS: BP_SYST 142; BP_SYST 156; BP_DIAS 80; BP_DIAS 83
[2020-07-02] MEDS: Dyna-Hex 2% Top Sol 2oz TOPIC SCH (21:03)
[2020-07-02] MEDS: Phytonadione 10 mg/mL 1ml amp SUBQ SCH (21:04)
[2020-07-02] MEDS: Fat Emulsion Iv 20% 216 ML in Tpn 1,584 ML IV SCH (21:05)
[2020-07-02] MEDS: Venofer 200mg in NS 110ml IVPB SCH (21:35)
--- NOTE | 2020-07-02 23:24 | NUR ---
NURSES NOTE: Pt in bed, A/OX4, denies pain or discomfort at this time. No outward s/s of distress noted. Breathing pattern is even and unlabored on RA. PICC line DESI noted. Dressing last changed 07/01. Bruising around insertion site noted. No s/s of infection. Ileo located LLQ to be flushed Q3H. Dressing changed by RN due to slight saturation after pt ambulated in hallway. All due medications will be administered. Bed at lowest level. Call light within reach. Pt will continue to be monitored.
[2020-07-03] MEDS: Ampicillin/Sulbactam Sod 3 GM in NS 110 ML IV SCH ×2 (00:50→05:56)
[2020-07-03 04:00] VITALS: BP 137/84
[2020-07-03 05:33] LABS: BASOPHILS % (AUTO) 2.4 % (0.0-2.0); EOSINOPHILS % (AUTO) 8.7 % (0.0-3.0); HEMATOCRIT 33.4 % (37.0-47.0); HEMOGLOBIN 11.5 G/DL (12.0-16.0); LYMPHOCYTES % (AUTO) 17.3 % (20.0-45.0); MEAN CORPUSCULAR VOLUME 84 FL (80-99); NEUTROPHILS % (AUTO) 62.6 % (45.0-75.0); PLATELET COUNT 186 K/UL (150-450); RED BLOOD COUNT 3.96 M/UL (4.20-5.40); RED CELL DISTRIBUTION WIDTH 14.8 % (11.6-14.8)
[2020-07-03 05:53] LABS: ALANINE AMINOTRANSFERASE 71 U/L (12-78); ALBUMIN 2.6 G/DL (3.4-5.0); ALBUMIN/GLOBULIN RATIO 0.8 (1.0-2.7); ALKALINE PHOSPHATASE 45 U/L (46-116); ANION GAP 3 mmol/L (5-15); ASPARTATE AMINO TRANSFERASE 32 U/L (15-37); BILIRUBIN,TOTAL 0.2 MG/DL (0.2-1.0); BLOOD UREA NITROGEN 23 mg/dL (7-18); CALCIUM 8.3 MG/DL (8.5-10.1); CARBON DIOXIDE 30 MMOL/L (21-32); CHLORIDE 105 MMOL/L (98-107); CREATININE 0.6 MG/DL (0.55-1.30); PHOSPHORUS 4.4 MG/DL (2.5-4.9); POTASSIUM 3.8 MMOL/L (3.5-5.1); SODIUM 138 MMOL/L (136-145)
[2020-07-03] MEDS: NovoLOG Insulin Flexpen SUBQ SCH ×4 (06:00→17:32)
--- NOTE | 2020-07-03 06:57 | NUR ---
NURSE HAND-OFF: Important Events on Shift:[NONE] Patient Status: [STABLE] Diet: [BCIR LOW RESIDUE] Pending Orders: [NONE] Pending Results/Labs:[]NONE Pending MD notification:[Mag 1.7] Latest Vital Signs: Temperature 97.7 , Pulse 74 , B/P 137 /84 , Respiratory Rate 20 , O2 SAT 95 , Room Air, O2 Flow Rate 2.0 . Vital Sign Comment: [Within Normal Limits] Latest Coeloh Fall Score: 35 Fall Risk: Medium Risk Safety Measures: Call light Within Reach, Bed Alarm Zone 1, Side Rails Side Rails x2, Bed position Low and Locked. Fall Precautions: Patient Fall Education Report given to [].
--- NOTE | 2020-07-03 07:30 | NUR ---
NURSE NOTES: Received report from Tiffanie BERGMAN. Patient is awake and oriented, in no distress, reporting no pain. Ileo to gravity drainage, DESI PICC running TPN per order. Patient updated on plan of care. Call light within reach.
--- NOTE | 2020-07-03 07:45 | NUR ---
HAND OFF: Report given to PACHECO Elizabeth. Socorro BERGMAN.
[2020-07-03 08:00] VITALS: BP 150/89
[2020-07-03] MEDS: Pseudoephedrine 30mg tab ORAL PRN ×2 (09:41→22:45)
[2020-07-03] MEDS: Lisinopril 2.5mg tab ORAL SCH (09:42)
[2020-07-03] MEDS: Flonase Nasal Inhaler 16gm NASAL SCH (09:42)
[2020-07-03] MEDS: Sertraline 50mg tab ORAL SCH (09:42)
--- NOTE | 2020-07-03 09:44 | General Progress Note ---
Progress Note Progress Note AVSS Feeling better less congested. Tolerating diet. Abdomen soft, stoma pink, peristomal incision clean Urine 2950 Kock pouch ileo 1540 labs all stable except Mg 1.7 Albumin up 2.6 Imp: Improved Plan: D/C antibiotics; taper and d/c TPN tonight Start RN supervised Kock Pouch self-intubations in AM Dandy Mar MD Jul 03, 2020 09:44
--- NOTE | 2020-07-03 10:07 | NUR ---
RD ASSESSMENT & RECOMMENDATIONS SEE CARE ACTIVITY FOR COMPLETE ASSESSMENT DAILY ESTIMATED NEEDS: Needs based on General, Surgery/ 66kg 25-30 kcals/kg total kcals 1-2 g protein/kg 66-132 g total protein 25-30 mL/kg total fluid mLs NUTRITION DIAGNOSIS: Altered GI function R/T h/o UC, admitted w/ malfunctioning Kock pouch with inability to intubate to evacuate stool as evidenced by s/p revision of Kock pouch stoma, TPN to titrate down, diet advanced to BCIR low fiber/ low residue. CURRENT DIET: BCIR diet PO DIET RECOMMENDATIONS: Advance diet per MD PARENTERAL NUTRITION RECOMMENDATIONS: TPN Comment: Titrating down per MD, last bag ADDITIONAL RECOMMENDATIONS: * Monitor lytes closely w/ TPN, replete as needed-> dc after this bag * Monitor LFTs and BGs w/ TPN, need for TPN adjustment * Monitor wt trend, rec standing wt as able for accuracy. * Monitor for diet advancement and tolerance On BCIR w/ good tolerance
[2020-07-03 12:00] VITALS: BP 140/85
--- NOTE | 2020-07-03 12:41 | NUR ---
CASE MANAGEMENT:REVIEW SI;POD #4 KOCK POUCH STOMA REVISION 97.7 77 20 150/89 95% ON RA BUN 23 MAG 1.7 ALB 2.6 IS;MAG SULFATE IV ONCE VENOFER IV HS UNASYN IV Q6 TPN IV MED SURG STATUS DCP;FROM HOME Plan: D/C antibiotics; taper and d/c TPN tonight Start RN supervised Kock Pouch self-intubations in AM
[2020-07-03 16:00] VITALS: BP 132/82
--- NOTE | 2020-07-03 19:25 | NUR ---
NURSE NOTES: Received report from PACHECO Elizabeth. Pt is calm, VSS, bed locked and in lowest position and in lowest position, call light within reach. PICC line dressing is clean and intact. Plan to d/c TPN tonight.
--- NOTE | 2020-07-03 19:30 | NUR ---
NURSE HAND-OFF: Important Events on Shift: Patient ambulated, tolerating diet well. Patient Status: stable Diet: BCIR Pending Orders: d/c TPN Pending Results/Labs: N/A Pending MD notification: N/A Latest Vital Signs: Temperature 97.9 , Pulse 83 , B/P 132 /82 , Respiratory Rate 20 , O2 SAT 95 , Room Air Vital Sign Comment: VS stable Latest Coelho Fall Score: 35 Fall Risk: Medium Risk Safety Measures: Call light Within Reach, Bed Alarm Zone 1, Side Rails Side Rails x2, Bed position Low and Locked. Fall Precautions: Patient Fall Education Report given to Leigh BERGMAN.
[2020-07-03 20:00] VITALS: BP 138/88
[2020-07-03] MEDS: Venofer 200mg in NS 110ml IVPB SCH (20:36)
[2020-07-03] MEDS: Dyna-Hex 2% Top Sol 2oz TOPIC SCH (20:36)
--- NOTE | 2020-07-03 20:45 | NUR ---
NURSE NOTES: Ileostomy dressing changed. Pt tolerated well.
--- NOTE | 2020-07-03 21:30 | NUR ---
NURSE NOTES: Changed TPN rate to 30cc X 2 hrs as ordered by . Will D/C accuchecks & insulin sliding scale.
[2020-07-03] MEDS: Zolpidem 5mg tab ORAL PRN (22:45)
[2020-07-04 03:52] VITALS: BP 140/91
--- NOTE | 2020-07-04 06:20 | NUR ---
NURSE NOTES: Pulled pt up in bed and place pillow under AKIL legs to offload heels. Addendum: 07/05/20 at 0221 by Jaime Pepper RN Incorrect patient, please disregard note.
--- NOTE | 2020-07-04 07:10 | NUR ---
NURSE HAND-OFF: Important Events on Shift: 5mg ambien order was obtained from for insomnia Patient Status: sleeping Diet: BCIR Pending Orders: Pending Results/Labs: Pending MD notification: Latest Vital Signs: Temperature 97.9 , Pulse 80 , B/P 140 /91 , Respiratory Rate 16 , O2 SAT 96 , Room Air, O2 Flow Rate 2.0 . Vital Sign Comment: VSS Latest Coelho Fall Score: 35 Fall Risk: Medium Risk Safety Measures: Call light Within Reach, Bed Alarm Zone 1, Side Rails Side Rails x2, Bed position Low and Locked. Fall Precautions: Patient Fall Education Report given to PACHECO Meza.
--- NOTE | 2020-07-04 07:21 | NUR ---
NURSE NOTES: Report received from Leigh RN/Jaime RN, rounds made. Patient pleasant, AOx4, calm. Respirations even/unlabored on RA. DESI PICC, dressing CDI. Abdominal/ileostomy dressing CDI, catheter to drainage bag (green brown liquid output). Denies SOB pain NV. Call light in reach, bed in lowest position, will continue to monitor.
[2020-07-04 08:00] VITALS: BP 148/86
--- NOTE | 2020-07-04 09:01 | General Progress Note ---
Progress Note Progress Note Doing well. Abdomen soft. Kock pouch catheter removed and reinserts readily straight into stoma and into the pouch Peristomal incision healing nicely I&O satisfactory Mg 2.0 Imp: Improved Plan: RN supervised Kock pouch self-intubations q3h am to hs Complete Venofer tonight (800mg total infused with tonight's dose) Full supplies/limitations/instructions provided/discussed including stents Dandy Mar MD Jul 04, 2020 09:01
[2020-07-04] MEDS: Flonase Nasal Inhaler 16gm NASAL SCH (10:20)
[2020-07-04] MEDS: Sertraline 50mg tab ORAL SCH (10:20)
[2020-07-04] MEDS: Lisinopril 2.5mg tab ORAL SCH (10:21)
[2020-07-04 12:00] VITALS: BP 129/79
[2020-07-04] MEDS ORDERED: NS Irrig 1000ml ONE (14:27)
--- NOTE | 2020-07-04 15:30 | NUR ---
NURSE NOTES: Patient started self intubating with RN supervision at 1200, using Sherin catheter, without difficulty, output flow, liquid, smooth, not sticky. Will continue every 3 hours as ordered.
[2020-07-04 16:00] VITALS: BP 125/74
--- NOTE | 2020-07-04 18:20 | NUR ---
NURSE NOTES: Patient feeling warm at 1600, temperature assessed 99.4, (patient was given Advil at 1553 for head and shoulder ache 5/10), reassessed pain improved, 2/10, still feeling warm, rechecked temperature 100.9, administered Tylenol 650 mg at 1716, encouraged PO fluid intake, provide cold compress to forehead and ice pack to neck, reassessed temperature at this time (1820) 100.2. Will notify Dr. Mar.
--- NOTE | 2020-07-04 18:31 | NUR ---
NURSE NOTES: Spoke with Dr. Mar regarding current status with self intubation and fever. Orders for labs (CBC BMP in AM) and DC PICC tonight after Venofer (previously ordered already this AM by Dr. Mar) Will endorse to next shift.
--- NOTE | 2020-07-04 19:15 | NUR ---
NURSE NOTES: Pt calm and relaxed in bed. VSS no complaints of pain. bed locked and in lowest position, side rails up x2, call light within reach. Plan to remove PICC line after last dose of venofer.
[2020-07-04 20:00] VITALS: BP 112/70
[2020-07-04] MEDS: Dyna-Hex 2% Top Sol 2oz TOPIC SCH (21:19)
[2020-07-04] MEDS: Venofer 200mg in NS 110ml IVPB SCH (21:20)
--- NOTE | 2020-07-04 21:30 | NUR ---
NURSE NOTES: Pt self intubated with RN supervision. Output of 100cc brownish color.
[2020-07-04] MEDS: Zolpidem 5mg tab ORAL PRN (21:44)
--- NOTE | 2020-07-04 22:55 | NUR ---
NURSE NOTES: Removed PICC line, pt tolerated procedure well, will send out tip of PICC line for culture.
[2020-07-05 03:33] VITALS: BP 145/97
[2020-07-05 05:46] LABS: BASOPHILS % (AUTO) 2.5 % (0.0-2.0); EOSINOPHILS % (AUTO) 5.7 % (0.0-3.0); HEMATOCRIT 36.1 % (37.0-47.0); HEMOGLOBIN 12.2 G/DL (12.0-16.0); LYMPHOCYTES % (AUTO) 12.7 % (20.0-45.0); MEAN CORPUSCULAR VOLUME 86 FL (80-99); MONOCYTES % (AUTO) 11.4 % (1.0-10.0); NEUTROPHILS % (AUTO) 67.7 % (45.0-75.0); PLATELET COUNT 176 K/UL (150-450); RED BLOOD COUNT 4.17 M/UL (4.20-5.40); RED CELL DISTRIBUTION WIDTH 14.5 % (11.6-14.8); WHITE BLOOD COUNT 5.7 K/UL (4.8-10.8)
[2020-07-05 05:59] LABS: ANION GAP 6 mmol/L (5-15); BLOOD UREA NITROGEN 17 mg/dL (7-18); CALCIUM 8.3 MG/DL (8.5-10.1); CARBON DIOXIDE 29 MMOL/L (21-32); CHLORIDE 104 MMOL/L (98-107); CREATININE 0.8 MG/DL (0.55-1.30); POTASSIUM 3.9 MMOL/L (3.5-5.1); SODIUM 138 MMOL/L (136-145)
--- NOTE | 2020-07-05 07:17 | NUR ---
NURSE NOTES: Report received from Leigh RN/Jaime RN, rounds made. Patient pleasant, AOx4, calm. Respirations even/unlabored on RA, has occasional cough and sneezing due to seasonal allergies. DESI PICC out, surrounding skin bruising, intact. Abdominal/ileostomy dressing CDI, will continue self intubation as ordered. Denies SOB pain NV chills or sweating. Call light in reach, bed in lowest position, will continue to monitor.
--- NOTE | 2020-07-05 07:20 | NUR ---
NURSE HAND-OFF: Important Events on Shift: PICC line removed and culture sent to lab Patient Status: relaxed and waking up Diet: BCIR Pending Orders: Pending Results/Labs:culture of PICC line Pending MD notification: Latest Vital Signs: Temperature 98.1 , Pulse 82 , B/P 145 /97 , Respiratory Rate 16 , O2 SAT 98 , Room Air, O2 Flow Rate 2.0 . Vital Sign Comment: VSS, no temperature Latest Coelho Fall Score: 35 Fall Risk: Medium Risk Safety Measures: Call light Within Reach, Bed Alarm Zone 1, Side Rails Side Rails x2, Bed position Low and Locked. Fall Precautions: Patient Fall Education Report given to PACHECO Meza.
[2020-07-05 08:00] VITALS: BP 118/74
[2020-07-05] MEDS: Lisinopril 2.5mg tab ORAL SCH (08:58)
[2020-07-05] MEDS: Flonase Nasal Inhaler 16gm NASAL SCH (08:59)
[2020-07-05] MEDS: Sertraline 50mg tab ORAL SCH (08:59)
--- NOTE | 2020-07-05 08:59 | General Progress Note ---
Progress Note Progress Note Temp 100.9 yesterday evening - PICC removed and tip sent for C&S Doing well with self-intubations of Continent Ileostomy pouch using 30 Fr Sherin catheter She feels fine, still with her nursing home nasal congestion and other allergy symptoms Abdomen soft Stoma and lateral incision healing nicely Urine 1625 Kock pouch ileo 1000 WBC 5700 Hgb 12.2 Imp: Fever ? due to PICC Plan: continue in-patient care and q4h VS if fever recurs or develops chills or diaphoresis will start IV antibiotics with peripheral IV continue RN supervised self-intubation of Kock Pouch q3h am to hs and prn Dandy Mar MD Jul 05, 2020 08:59
[2020-07-05 12:00] VITALS: BP 120/73
[2020-07-05 16:00] VITALS: BP 138/78
--- NOTE | 2020-07-05 18:50 | NUR ---
NURSE NOTES: Called Dr. Mar with updates on patient's current status. At 1815, patient reports head (right side/eyes) and shoulder ache 4/10, requesting Tylenol, denies sweating/chills, however, states she felt the chills around 1600 for one hour then subsided. Patient has been afebrile throughout shift. Temperature obtained at 1815, 98.9, medicated with Tylenol 650 mg as requested. Also notified Dr. Mar of watery consistency of ileo output with self intubation and total 900 ml output. PICC tip culture not resulted yet, due to hasn't reached 24 hour point. Plan is possible home in AM, if no issues overnight. No further orders at this time. Will update patient.
--- NOTE | 2020-07-05 19:39 | NUR ---
NURSE HAND-OFF: Important Events on Shift:Afebrile, Head/Shoulders ache (administered Tylenol), updated Dr. Mar on vitals, ileo (self intubation) output/watery consistency, c/o chills for one hour around 1600 Patient Status: stable Diet: BCIR Outputs: Urine: 1100 ml Ileo: 900 ml Pending Orders: none Pending Results/Labs:none Pending MD notification:none Latest Vital Signs: Temperature 98.9 , Pulse 78 , B/P 138 /78 , Respiratory Rate 16 , O2 SAT 94 , Room Air, O2 Flow Rate 2.0 . Vital Sign Comment: monitor temperature Latest Coelho Fall Score: 35 Fall Risk: Medium Risk Safety Measures: Call light Within Reach, Bed Alarm Zone 1, Side Rails Side Rails x2, Bed position Low and Locked. Fall Precautions: Yellow Socks Patient Fall Education Report given to Tiffanie BERGMAN.
[2020-07-05 20:00] VITALS: BP 144/85
[2020-07-05] MEDS: Dyna-Hex 2% Top Sol 2oz TOPIC SCH (20:00)
--- NOTE | 2020-07-05 21:41 | NUR ---
NURSING NOTE: Received report from PACHECO Garcia. Rounds made. Pt in bed, A/OX4, denies pain, discomfort or chills. 2000 VS stable. Afebrile. Pt is not self intubating. Pt states she will let RN know when she is ready to self intubate before going to bed. DESI PICC line removed. Bruising noted. All due medications will be administered. Bed at lowest level. Call light within reach. Pt will continue to be monitored. Possible d/c 07/06/20.
[2020-07-06] VITALS: BP 137/78
[2020-07-06 04:00] VITALS: BP 139/90
--- NOTE | 2020-07-06 06:55 | NUR ---
NURSE HAND-OFF: Important Events on Shift:[Pt was afebrile all vs checks. Pt is requesting chest xray and covid test before d/c] Patient Status: [stable] Diet: [bcir low residue] Pending Orders: [none] Pending Results/Labs:[assessing picc line for infection] Pending MD notification:[none] Latest Vital Signs: Temperature 98.6 , Pulse 87 , B/P 139 /90 , Respiratory Rate 17 , O2 SAT 96 , Room Air, O2 Flow Rate 2.0 . Vital Sign Comment: [wnl] Latest Coelho Fall Score: 35 Fall Risk: Medium Risk Safety Measures: Call light Within Reach, Bed Alarm Zone 1, Side Rails Side Rails x2, Bed position Low and Locked. Fall Precautions: Yellow Socks Patient Fall Education Report given to [].
--- NOTE | 2020-07-06 07:57 | NUR ---
HAND OFF: Report given to PACHECO Buckley. Addendum: 07/06/20 at 0802 by Tiffanie Muhammad RN Report given to PACHECO Elizabeth
[2020-07-06 08:00] VITALS: BP 139/92
--- NOTE | 2020-07-06 08:00 | NUR ---
NURSE NOTES: Received report from Tiffanie BERGMAN. Patient is awake and oriented, in no distress, reporting no pain, self intubating independently. Discharge planning for today. Call light within reach.
--- NOTE | 2020-07-06 08:22 | General Progress Note ---
Progress Note Progress Note AVSS Doing well with self-intubations of her Mclean Continent ileostomy Stoma healing nicely I&O satisfactory Imp: Improved Plan: Discharge Rx - none f/u office 07/08 phone appointment Instructions/limitations/supplies discussed/provided Dandy Mar MD Jul 06, 2020 08:22
[2020-07-06 08:59] VITALS: BP 139/92
[2020-07-06] MEDS: Sertraline 50mg tab ORAL SCH (08:59)
[2020-07-06] MEDS: Lisinopril 2.5mg tab ORAL SCH (08:59)
[2020-07-06] MEDS: Flonase Nasal Inhaler 16gm NASAL SCH (09:00)
--- NOTE | 2020-07-06 11:15 | NUR ---
NURSE NOTES: Patient discharged without distress. Provided with discharge education and verbalized understanding of provided education. ID band removed. All belongings sent with patient. Patient escorted off unit to private vehicle.
--- NOTE | 2020-07-08 13:46 | Discharge Summary ---
Discharge Summary Hospital Course Date of Admission Jun 24, 2020 at 14:58 Date of Discharge Jul 06, 2020 at 11:30 Admitting Diagnosis malfunctioning Kock pouch /difficulties with intubation Reason for Hospitalization: emergent endoscopy of Kock pouch continent ileostomy HPI Anthony Anthony is a 69 year old female who was admitted on Jun 24, 2020 at 14:58 for Malfunctioning Fox Pouch. 69-year-old female in overall good health, with PMH of ulcerative colitis , who undergone many years ago proctocolectomy with Kock pouch continent ileostomy with (last revision in 2012). She had been doing well; intubating 5 times per day. Recently, she felt she might have some symptoms of pouchitis, but then on night, June 18 at 11 p.m., she was able to intubate it . However she was unable to intubate the following day. Patient was directed by surgeon on June 19, to go to the the emergency room. She went to ER in [place]. cco & president was able to get a 30-Gu[place] Medena catheter into the pouch and connected it to suction. A nasogastric tube was placed . She was hospitalized for several days, then was discharged home in stable condition. She had an indwelling catheter in place. She reported difficulties with intubation: inability to put a catheter all the way In the past she had severe pouchitis ,causing abdominal and right lower extremity pain, with extensive negative vascular work-up. 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 After several months of instilling mesalamine suspension qhs into her pouch . all of her symptoms resolved. Patient arrived out of town to undergo emergent endoscopy of Kock pouch continent ileostomy due to difficulty with intubation. Consultations seamer/IM Dr Alexandra Quiroga Procedures s/p 06/24/[address] Isabela Wallace pouch endoscopy s/p 06/26 2020 Kock pouch pouchogram with small bowel series s/06/29/[address] Mar Revision of Kock pouch stoma in depth Hospital Course patient presented with malfunctioning Kock pouch with inability to intubate and evacuate stool patient subsequently undergone on 06/24 pouch endoscopy, which revealed elongation redundancy and angulation of the access segment at approximately 8 cm depth after removing the endoscope , 28 [place] Garrett catheter was inserted into the pouch and connected to gravity drainage patient tolerated endoscopy well PICC line was placed intake and output and labs were closely monitored patient noted to have malnutrition on admission along with mild dehydration patient started on TPN magnesium was replaced. patient was provided with clear liquid diet Kock pouch catheter was maintained to continuous drainage CT scan of the abdomen and pelvis revealed no specific evidence of mass patient subsequently undergone Kock pouch pouchogram x-ray with a retrograde small bowel series , which demonstrated appropriate filling of the Kock pouch and reflux into the ileum no evidence of filling defect or stricture TPN continued bowel preparation provided prior to planned surgery for stoma revision , possible laparotomy full discussion with the patient, including indication, alternatives, options and risk provided; all questions were answered patient consented to surgery patient started on empiric antibiotic and preoperative heparin patient subsequently undergone on 06/29 revision of Kock pouch stoma in depth a very satisfactory stoma was achieved 28 Guatem[place] Garrett catheter went readily in and out of the pouch , confirmed by irrigation and was sutured to the skin patient tolerated procedure well. pain management was addressed initially with ANIMAL RIDES MANAGER patient voided without difficulties intake and output and labs were closely monitored peristomal incision was healing nicely patient was able to tolerate BCIR diet patient noted to have severe iron deficiency and started on IV Venofer patient completed 5 days of Venofer ANIMAL RIDES MANAGER was later discontinued TPN continued indwelling Kock pouch catheter was maintained to drainage IV antibiotic continued, then subsequently stopped TPN tapered and discontinued patient started on RN supervised Kock pouch self intubation every 3 hours am to hs and as needed patient noted to have fever PICC line was discontinued catheter tip revealed no evidence of infection urine culture was negative fever resolved no leukocytosis RN supervised self intubation of Kock pouch continued every 3 hours a.m. to hs and as needed no further fevers patient clinically stabilized and was ready for discharge stoma was healing nicely ; no pain intake and output remained satisfactory patient was doing well with self intubation of her Mclean continent ileostomy patient to follow-up in the office on 07/08 via phone appointment instruction/limitations/supplies discussed/provided POSTOPERATIVE DIAGNOSES: 1. 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 2. History of ulcerative colitis. 3. STATUS POST MULTIPLE ABDOMINAL OPERATIONS: 3.1. Proctocolectomy and Marion ileostomy in 1975. 3.2. Kock pouch continent ileostomy in 1979. 3.3. Revision of Kock pouch valve 1979. 3.4. Total abdominal hysterectomy and bilateral salpingo-oophorectomy 2000. 3.5. Revision of Kock pouch with creation of new valve and stoma with relocation of the stoma to the left lower quadrant September 19, 2012. 3.6. Revision of Kock pouch stoma in depth May 2013. 4. s/p Revision of Kock pouch stoma in depth. 5. Malnutrition, present on admission 6. Mild dehydration, present on admission 7. Severe iron deficiency Discharge Medications Continued Medications: Cetirizine Hcl (Zyrtec) 10 Mg Capsule 10 MG PO DAILY PRN for ANTIHISTAMINE Cholecalciferol (Vitamin D3) (Vitamin D3) 50 Mcg Capsule 4000 UNITS PO for SUPPLEMENT, CAP Ferrous Gluconate (Iron) 236 Mg Tablet 65 MG PO for SUPPLEMENT, TAB [Fish Oil] () 3000 MG ORAL DAILY for SUPPLEMENT Lactobacillus Rhamnosus Gg (Probiotic) 1 Each Capsule 1 EACH PO TWICE A DAY for SUPPLEMENT Lisinopril* (Prinivil*) 10 Mg Tablet 10 MG ORAL DAILY for HTN, TAB Mometasone Furoate (Nasonex) 17 Gm [place].pump 17 GM NS DAILY Sertraline Hcl* (Zoloft*) 50 Mg Tablet 150 MG PO DAILY for DEPRESSION Triamcinolone Acetonide (Nasacort) 10.8 Ml [place] Unknown Dose NS for ALLERGIES, SPRAY Vitamin B Complex (B Complex) 1 Each Tablet 1000 MG ORAL DAILY for SUPPLEMENT, #30 TAB 0 Refills Discharge Condition Upon Discharge: stable Discharge Vital Signs Last Vital Signs Date Time Temp Pulse Resp B/P (MAP) Pulse Ox O2 Delivery O2 Flow Rate FiO2 07/06/20 09:00 Room Air 07/06/20 08:59 139/92 07/06/20 08:00 98.8 84 16 96 06/29/20 10:25 2.0 Discharge Disposition Patient was discharged to Discharge Instructions Discharge Instructions Special Instructions I have been assigned to complete a D/C Summary on this account. I was not involved in the patient management Philly Villatoro NP Jul 08, 2020 13:46
== END 2020-07-06 11:30 | disposition home or self-care (01) | DRG 348 ==
LOC: GAS 10:58 → 3E 14:58
PROC: 0DJD8ZZ Inspection of Lower Intestinal Tract, Via Natural or Artificial Opening Endoscopic (ICD-10-PCS; principal; 2020-06-24 13:21)
PROC: 02HV33Z Insertion of Infusion Device into Superior Vena Cava, Percutaneous Approach (ICD-10-PCS; principal; 2020-06-24 13:21)
PROC: 0WQFXZ2 Repair Abdominal Wall, Stoma, External Approach (ICD-10-PCS; 2020-06-29)
DX: K94.13 Enterostomy malfunction (principal); E46 Unspecified protein-calorie malnutrition; Z68.24 Body mass index [BMI] 24.0-24.9, adult; Z88.2 Allergy status to sulfonamides; Y83.3 Surgical operation with formation of external stoma as the cause of abnormal reaction of the patient, or of later complication, without mention of misadventure at the time of the procedure; I10 Essential (primary) hypertension; I34.0 Nonrheumatic mitral (valve) insufficiency; F32.9 Major depressive disorder, single episode, unspecified; E86.0 Dehydration; E61.1 Iron deficiency; Z87.19 Personal history of other diseases of the digestive system
CPT/HCPCS: 36415; 36573; 71045; 74177; 74270; 76937; 80048; 80053; 81001; 81003; 82607; 82746; 82962; 83540; 83550; 83735; 84100; 85025; 85610; 85730; 86850; 86900; 86901; 87070; 87086; 93306; 94003; 94150; J1815; J2405; J2710; S0077; U0002